=== PATIENT | female | born 1950 | race Caucasian/White ===

== ENCOUNTER 2020-05-15 09:42 | Inpatient (IN) | payer OTHER, MEDICARE, SELFPAY ==
[~2020-05-15] VITALS: Ht 170.2 cm; Wt 81.6 kg
[2020-05-15 09:42] VITALS: BP_SYST 122
[~2020-05-15 09:42] MED LIST: LIDOCAINE 1% 10 MG/ML, 20 ML MDV INJ ONE; NS 1000 ML IV.SOLN IV ONE; NS IRRIG SOLN 1000 ML IR ONE; PROPOFOL 200MG/ 20ML VIAL (DIPRIVAN) IV ONE
[2020-05-15] MEDS ORDERED: CELE200C PO (09:59)
[2020-05-15] MEDS ORDERED: PROP10TA10 PO (09:59)
[2020-05-15] MEDS ORDERED: SSNOVOLOG SUBCUT (09:59)
[2020-05-15] MEDS ORDERED: OXYIR5 PO (09:59)
[2020-05-15] MEDS ORDERED: POTA8TAB57 PO (09:59)
[2020-05-15] MEDS ORDERED: PRO40 PO (09:59)
[2020-05-15 10:22] LABS: EOSINOPHILS % (AUTO) 0.2 % (0.0-4.0); HEMATOCRIT 37.3 % (36-48); HEMOGLOBIN 12.4 g/dL (12.0-16.0); LYMPHOCYTES # (AUTO) 0.6 K/uL (1.0-5.5); LYMPHOCYTES % (AUTO) 3.1 % (20.5-51.5); MEAN CORPUSCULAR HEMOGLOBIN 28 pg (27-31); MEAN CORPUSCULAR HGB CONC 33 % (32-36); MEAN CORPUSCULAR VOLUME 83 fL (79.0-98.0); MONOCYTES % (AUTO) 5.6 % (1.7-9.3); NEUTROPHILS # (AUTO) 17.1 K/uL (1.8-7.7); NEUTROPHILS % (AUTO) 91.1 % (40.0-70.0); PLATELET COUNT (AUTO) 146 K/uL (130-430); RED BLOOD CELL COUNT(AUTO) 4.51 MIL/uL (4.2-6.2); RED CELL DISTRIBUTION WIDTH 18.2 % (9.0-15.0); WHITE BLOOD COUNT (AUTO) 18.7 K/uL (4.8-10.8)
[2020-05-15 10:42] LABS: CALCIUM 8.7 mg/dL (8.4-11.0); CREATININE 1.42 mg/dL (0.55-1.30); POTASSIUM 5.4 mmol/L (3.5-5.1)
[2020-05-15 10:45] LABS: BILIRUBIN,URINE 2+ (NEGATIVE); BLOOD, URINE 2+ (NEGATIVE); CLARITY/URINE SL CLOUDY (CLEAR); GLUCOSE,URINE NEGATIVE (NEGATIVE); KETONES,URINE NEGATIVE (NEGATIVE); LEUKOCYTE ESTERASE ,URINE NEGATIVE (NEGATIVE); NITRITE, URINE POSITIVE (NEGATIVE); PROTEIN URINE TRACE (NEGATIVE)
[2020-05-15 10:48] LABS: ALBUMIN 2.2 g/dL (3.4-4.8); TOTAL BILIRUBIN 4.3 mg/dL (0.0-1.0)
[2020-05-15 10:54] LABS: COLOR,URINE AMBER (YELLOW)
[2020-05-15] MEDS ORDERED: NACL 0.9% 2,000 ML IV ONE (11:00)
[2020-05-15] MEDS ORDERED: LEVOFLOXACIN 500 MG/D5W 100 ML IV ONE ×2 (11:45→13:45)
[2020-05-15 11:53] LABS: BACTERIA,URINE FEW /HPF (None Seen)
[2020-05-15] MEDS ORDERED: fentaNYL CITRATE 250 MCG/5 ML AMP IV ONE (12:35)
[2020-05-15] MEDS ORDERED: MIDAZOLAM HCL 5 MG/5 ML VIAL IVP ONE (12:35)
[2020-05-15] MEDS ORDERED: LEVOFLOXACIN 500 MG/D5W 100 ML PIGGYBACK IV ONE (12:35)
[2020-05-15] MEDS ORDERED: DESFLURANE 15 MIN GAS INH ONE (12:35)
[2020-05-15] MEDS ORDERED: ROCURONIUM BROMIDE 10 MG/ML (ZEMURON) IV ONE (12:35)
[2020-05-15] MEDS ORDERED: LR 1,000 ML IV.SOLN IV ONE (12:35)
[2020-05-15] MEDS ORDERED: NS IRRIG SOLN 1000 ML IR ONE (12:35)
[2020-05-15] MEDS ORDERED: DEXAMETHASONE SOD PHOSPHATE 4 MG/ML VIAL IVP ONE (12:35)
[2020-05-15] MEDS ORDERED: CLINDAMYCIN PHOSPHATE 600 mg/50mL D5W IV ONE (12:35)
[2020-05-15] MEDS ORDERED: SUGAMMADEX SODIUM 200 MG/2 ML VIAL IV ONE (12:35)
[2020-05-15] MEDS ORDERED: ONDANSETRON HCL 4 MG/2 ML VIAL IVP ONE (12:35)
[2020-05-15] MEDS ORDERED: LIDOCAINE 1% 10 MG/ML, 20 ML MDV IM ONE (12:35)
[2020-05-15] MEDS ORDERED: BUPIVACAINE /PF 0.25% 30 ML VIAL INJ ONE (12:35)
[2020-05-15] MEDS ORDERED: AZITHROMYCIN 500 MG/VIAL (ZITHROMAX) IV ONE (13:40)
[2020-05-15] MEDS ORDERED: AZITHROMYCIN 500 MG in NS 250 ML IV ONE (13:45)
[2020-05-15] MEDS ORDERED: GLUCOSE (DEXTROSE) ORAL GEL -Adults PO PRN (16:00)
[2020-05-15] MEDS ORDERED: D5W 1,000 ML IV PRN (16:00)
[2020-05-15] MEDS ORDERED: IPRATROPIUM/ALBUTEROL SULFATE 3 ML AMPUL.NEB (DUONEB) INH PRN (16:00)
[2020-05-15] MEDS ORDERED: DEXTROSE 50% JECT 50 ML DISP.SYRIN IVP PRN (16:00)
[2020-05-15 16:28] VITALS: BP_SYST 134
[2020-05-15 16:36] VITALS: BP_SYST 137
[2020-05-15 16:42] VITALS: BP_SYST 134
[2020-05-15] MEDS: INSULIN LISPRO SLIDING SCALE 100 UNITS/ML VIAL (humaLOG) SUBCUT PRN (18:05)
[2020-05-15] MEDS: NACL 0.9% 1,000 ML IV SCH (19:10)
[2020-05-15 19:52] VITALS: BP_SYST 130
[2020-05-15 20:00] VITALS: BP_SYST 143
[2020-05-15] MEDS ORDERED: SODIUM POLYSTYRENE SULFONATE 15 GM/60 ML UDBTL PO ONE (20:00)
[2020-05-15] MEDS: SENNOSIDES 8.6 MG TABLET PO SCH (21:00)
[2020-05-15] MEDS ORDERED: SODIUM POLYSTYRENE SULFONATE 15 GM/60 ML UDBTL ONE (21:25)
[2020-05-16 00:12] VITALS: BP_SYST 136
[2020-05-16] MEDS: NACL 0.9% 1,000 ML IV SCH ×3 (03:24→22:00)
[2020-05-16] MEDS ORDERED: VANCOMYCIN HCL 1 GM/NS PREMIX 250 ML IV ONE (05:00)
[2020-05-16 06:44] LABS: BASOPHILS # (AUTO) 0.1 K/uL (0.0-0.2); BASOPHILS % (AUTO) 0.6 % (0.0-2.0); EOSINOPHILS # (AUTO) 0.1 K/uL (0.0-0.4); EOSINOPHILS % (AUTO) 0.6 % (0.0-4.0); HEMATOCRIT 35.1 % (36-48); HEMOGLOBIN 11.6 g/dL (12.0-16.0); LYMPHOCYTES # (AUTO) 0.5 K/uL (1.0-5.5); LYMPHOCYTES % (AUTO) 4.6 % (20.5-51.5); MEAN CORPUSCULAR HEMOGLOBIN 28 pg (27-31); MEAN CORPUSCULAR HGB CONC 33 % (32-36); MEAN CORPUSCULAR VOLUME 83 fL (79.0-98.0); MONOCYTES # (AUTO) 0.6 K/uL (0.0-1.0); MONOCYTES % (AUTO) 5.6 % (1.7-9.3); NEUTROPHILS # (AUTO) 9.7 K/uL (1.8-7.7); NEUTROPHILS % (AUTO) 88.6 % (40.0-70.0); PLATELET COUNT (AUTO) 66 K/uL (130-430); RED BLOOD CELL COUNT(AUTO) 4.22 MIL/uL (4.2-6.2); RED CELL DISTRIBUTION WIDTH 18.8 % (9.0-15.0)
[2020-05-16 07:46] LABS: ALBUMIN 1.6 g/dL (3.4-4.8); BILIRUBIN,DIRECT 2.6 mg/dL (0.0-0.3); CREATININE 0.99 mg/dL (0.55-1.30); POTASSIUM 4.4 mmol/L (3.5-5.1); THYROID STIMULATING HORMONE 2.11 uIu/mL (0.36-3.74)
[2020-05-16 08:00] VITALS: BP_SYST 132
[2020-05-16 08:33] LABS: TOTAL BILIRUBIN 3.3 mg/dL (0.0-1.0)
[2020-05-16] MEDS: FAMOTIDINE 20 MG TABLET PO SCH (08:36)
[2020-05-16] MEDS: LEVOFLOXACIN 250 MG/D5W 50 ML IV SCH (11:00)
[2020-05-16] MEDS: oxyCODONE HCL 5 MG TABLET PO PRN ×2 (11:24→20:30)
[2020-05-16] MEDS: INSULIN LISPRO SLIDING SCALE 100 UNITS/ML VIAL (humaLOG) SUBCUT PRN ×3 (11:30→20:35)
[2020-05-16 12:00] VITALS: BP_SYST 141
[2020-05-16] MEDS: VANCOMYCIN HCL 1 GM/NS PREMIX 250 ML IV SCH (12:00)
[2020-05-16] MEDS ORDERED: DECADRON 4 MG TABLET ONE (12:49)
[2020-05-16] MEDS: DECADRON 4 MG TABLET PO SCH (12:57)
[2020-05-16 16:00] VITALS: BP_SYST 135
[2020-05-16] MEDS: BALSAM PERU/CASTOR OIL 60 GM OINT...G. TP SCH (17:00)
[2020-05-16] MEDS: FUROSEMIDE 20 MG/2 ML VIAL IVP SCH (18:00)
[2020-05-16 20:20] VITALS: BP_SYST 147
[2020-05-16] MEDS: SENNOSIDES 8.6 MG TABLET PO SCH (21:00)
[2020-05-17] VITALS: BP_SYST 139
[2020-05-17] MEDS: VANCOMYCIN HCL 1 GM/NS PREMIX 250 ML IV SCH ×2 (00:40→12:31)
[2020-05-17] MEDS: oxyCODONE HCL 5 MG TABLET PO PRN ×3 (06:19→21:39)
[2020-05-17] MEDS: INSULIN LISPRO SLIDING SCALE 100 UNITS/ML VIAL (humaLOG) SUBCUT PRN ×4 (06:24→21:43)
[2020-05-17 07:15] LABS: BASOPHILS % (AUTO) 0.3 % (0.0-2.0); HEMATOCRIT 37.1 % (36-48); HEMOGLOBIN 12.2 g/dL (12.0-16.0); LYMPHOCYTES # (AUTO) 0.4 K/uL (1.0-5.5); LYMPHOCYTES % (AUTO) 4.2 % (20.5-51.5); MEAN CORPUSCULAR HEMOGLOBIN 28 pg (27-31); MEAN CORPUSCULAR HGB CONC 33 % (32-36); MEAN CORPUSCULAR VOLUME 84 fL (79.0-98.0); MONOCYTES # (AUTO) 0.3 K/uL (0.0-1.0); MONOCYTES % (AUTO) 3.9 % (1.7-9.3); NEUTROPHILS # (AUTO) 7.8 K/uL (1.8-7.7); NEUTROPHILS % (AUTO) 91.6 % (40.0-70.0); RED BLOOD CELL COUNT(AUTO) 4.44 MIL/uL (4.2-6.2); RED CELL DISTRIBUTION WIDTH 19.2 % (9.0-15.0); WHITE BLOOD COUNT (AUTO) 8.5 K/uL (4.8-10.8)
[2020-05-17 07:44] LABS: ALBUMIN 1.5 g/dL (3.4-4.8); CALCIUM 7.8 mg/dL (8.4-11.0); CREATININE 0.86 mg/dL (0.55-1.30); POTASSIUM 4.4 mmol/L (3.5-5.1); TOTAL BILIRUBIN 2.7 mg/dL (0.0-1.0)
[2020-05-17 08:00] VITALS: BP_SYST 156
[2020-05-17 08:07] LABS: HEPATITIS A AB, IgM Negative (Negative); HEPATITIS B CORE AB, IgM Negative (Negative); HEPATITIS B SURFACE AG Negative (Negative)
[2020-05-17] MEDS: NACL 0.9% 1,000 ML IV SCH (08:25)
[2020-05-17 09:00] LABS: C-REACTIVE PROTEIN QUANT 13.6 mg/dL (0-0.5)
[2020-05-17] MEDS ORDERED: ENOXAPARIN SODIUM 30 MG/0.3 ML SYRINGE SUBCUT SCH (09:00)
[2020-05-17] MEDS: FAMOTIDINE 20 MG TABLET PO SCH (10:21)
[2020-05-17] MEDS: FUROSEMIDE 20 MG/2 ML VIAL IVP SCH (10:21)
[2020-05-17] MEDS: DECADRON 4 MG TABLET PO SCH (10:21)
[2020-05-17] MEDS: BALSAM PERU/CASTOR OIL 60 GM OINT...G. TP SCH ×2 (10:22→13:40)
[2020-05-17] MEDS: ACETAMINOPHEN 325 MG TABLET PO PRN (10:22)
[2020-05-17] MEDS ORDERED: oxyCODONE HCL 5 MG TABLET PO ONE (10:45)
[2020-05-17] MEDS: LEVOFLOXACIN 250 MG/D5W 50 ML IV SCH (11:00)
[2020-05-17 11:20] VITALS: BP_SYST 142
[2020-05-17] MEDS ORDERED: methylPREDNISolone ACETATE 40 MG/ML IM ONE (11:45)
[2020-05-17] MEDS ORDERED: LIDOCAINE PF 1%, 20 MG/2 ML AMP INJ ONE (11:45)
[2020-05-17] MEDS ORDERED: COMMUNICATION ORDER XX ONE (12:00)
[2020-05-17] MEDS ORDERED: BUPIVACAINE /PF 0.75% 10 ML VIAL INJ ONE (12:15)
[2020-05-17] MEDS ORDERED: MENTHOL/ZINC OXIDE 113 GM OINT. TP PRN (12:30)
[2020-05-17 14:02] LABS: PLATELET COUNT (AUTO) 54 K/uL (130-430)
[2020-05-17 15:26] VITALS: BP_SYST 156
[2020-05-17 15:38] LABS: APPEARANCE,SPUN,BODY FLUID HAZY (CLEAR); BF APPEARANCE UNSPUN CLOUDY (CLEAR); BODY FLUID COLOR RED (LT YELLOW); BODY FLUID SOURCE/ TYPE PLEURAL; BODY FLUID TOTAL VOLUME 700 mL; NEUTROPHIL, BODY FLUID 90 %; RBC, BODY FLUID 54567 /uL; SOURCE/TYPE ,BODY FLUID THORACENTESIS; WBC, BODY FLUID 53433 /uL
[2020-05-17 15:39] LABS: MONOCYTES,BODY FLUID 10 %
[2020-05-17 18:51] LABS: BODY FLUID GLUCOSE 73 mg/dL; BODY FLUID TOTAL PROTEIN 4.2 g/dL
[2020-05-17 20:50] VITALS: BP_SYST 145
[2020-05-17] MEDS: SENNOSIDES 8.6 MG TABLET PO SCH ×2 (21:30→21:31)
[2020-05-17] MEDS: IBUPROFEN 400 MG TABLET PO PRN (21:40)
[2020-05-18] VITALS (7 sets, daily range): BP systolic 140–146
[2020-05-18] MEDS: VANCOMYCIN HCL 1 GM/NS PREMIX 250 ML IV SCH (00:20)
[2020-05-18] MEDS: IBUPROFEN 400 MG TABLET PO PRN ×2 (02:58→06:44)
[2020-05-18] MEDS: oxyCODONE HCL 5 MG TABLET PO PRN ×3 (02:59→19:50)
[2020-05-18] MEDS: NACL 0.9% 1,000 ML IV SCH ×2 (06:21→15:49)
[2020-05-18] MEDS: INSULIN LISPRO SLIDING SCALE 100 UNITS/ML VIAL (humaLOG) SUBCUT PRN ×4 (06:44→20:18)
[2020-05-18 07:51] LABS: ALBUMIN 1.5 g/dL (3.4-4.8); CALCIUM 7.6 mg/dL (8.4-11.0); CREATININE 1.03 mg/dL (0.55-1.30); TOTAL BILIRUBIN 2.1 mg/dL (0.0-1.0)
[2020-05-18] MEDS: DECADRON 4 MG TABLET PO SCH (08:24)
[2020-05-18] MEDS: FAMOTIDINE 20 MG TABLET PO SCH (08:24)
[2020-05-18] MEDS: FUROSEMIDE 20 MG/2 ML VIAL IVP SCH (08:25)
[2020-05-18] MEDS: BALSAM PERU/CASTOR OIL 60 GM OINT...G. TP SCH ×3 (08:30→15:57)
[2020-05-18] MEDS: LEVOFLOXACIN 250 MG/D5W 50 ML IV SCH (11:01)
[2020-05-18] MEDS: VANCOMYCIN HCL 750 MG/NS 250 ML IV SCH (19:53)
[2020-05-18] MEDS ORDERED: INSULIN GLARGINE 100 UNITS/ML 10 ML VIAL SUBCUT SCH (21:00)
[2020-05-19 00:06] VITALS: BP_SYST 145
[2020-05-19] MEDS: oxyCODONE HCL 5 MG TABLET PO PRN ×4 (01:02→20:15)
[2020-05-19] MEDS: INSULIN LISPRO SLIDING SCALE 100 UNITS/ML VIAL (humaLOG) SUBCUT PRN ×4 (06:32→20:17)
[2020-05-19 06:51] LABS: BASOPHILS % (AUTO) 0.2 % (0.0-2.0); HEMATOCRIT 36.7 % (36-48); HEMOGLOBIN 12.2 g/dL (12.0-16.0); LYMPHOCYTES # (AUTO) 0.5 K/uL (1.0-5.5); LYMPHOCYTES % (AUTO) 8.8 % (20.5-51.5); MEAN CORPUSCULAR HEMOGLOBIN 28 pg (27-31); MEAN CORPUSCULAR HGB CONC 33 % (32-36); MEAN CORPUSCULAR VOLUME 83 fL (79.0-98.0); MONOCYTES # (AUTO) 0.5 K/uL (0.0-1.0); MONOCYTES % (AUTO) 8.2 % (1.7-9.3); NEUTROPHILS # (AUTO) 5.1 K/uL (1.8-7.7); NEUTROPHILS % (AUTO) 82.8 % (40.0-70.0); PLATELET COUNT (AUTO) 54 K/uL (130-430); RED BLOOD CELL COUNT(AUTO) 4.41 MIL/uL (4.2-6.2); RED CELL DISTRIBUTION WIDTH 19.4 % (9.0-15.0); WHITE BLOOD COUNT (AUTO) 6.2 K/uL (4.8-10.8)
[2020-05-19 07:43] LABS: ALBUMIN 1.6 g/dL (3.4-4.8); CALCIUM 7.6 mg/dL (8.4-11.0); CREATININE 0.93 mg/dL (0.55-1.30); POTASSIUM 4.8 mmol/L (3.5-5.1)
[2020-05-19 07:58] VITALS: BP_SYST 154
[2020-05-19] MEDS: DECADRON 4 MG TABLET PO SCH (08:21)
[2020-05-19] MEDS: FAMOTIDINE 20 MG TABLET PO SCH (08:21)
[2020-05-19] MEDS: VANCOMYCIN HCL 750 MG/NS 250 ML IV SCH ×2 (08:21→20:13)
[2020-05-19] MEDS: FUROSEMIDE 20 MG/2 ML VIAL IVP SCH (08:21)
[2020-05-19] MEDS: LEVOFLOXACIN 250 MG/D5W 50 ML IV SCH (11:20)
[2020-05-19 11:52] VITALS: BP_SYST 152
[2020-05-19 16:56] VITALS: BP_SYST 158
[2020-05-19 20:00] VITALS: BP_SYST 148
[2020-05-19] MEDS: INSULIN GLARGINE 100 UNITS/ML 10 ML VIAL SUBCUT SCH (20:18)
[2020-05-19] MEDS: SENNOSIDES 8.6 MG TABLET PO SCH (20:20)
[2020-05-20 00:30] VITALS: BP_SYST 148
[2020-05-20] MEDS: oxyCODONE HCL 5 MG TABLET PO PRN ×3 (04:25→20:42)
[2020-05-20] MEDS: NACL 0.9% 1,000 ML IV SCH (05:37)
[2020-05-20] MEDS: INSULIN LISPRO SLIDING SCALE 100 UNITS/ML VIAL (humaLOG) SUBCUT PRN ×4 (06:33→20:33)
[2020-05-20 08:00] VITALS: BP_SYST 144
[2020-05-20 08:44] LABS: BASOPHILS % (AUTO) 0.2 % (0.0-2.0); EOSINOPHILS % (AUTO) 0.4 % (0.0-4.0); HEMATOCRIT 35.8 % (36-48); HEMOGLOBIN 11.8 g/dL (12.0-16.0); LYMPHOCYTES # (AUTO) 0.6 K/uL (1.0-5.5); LYMPHOCYTES % (AUTO) 10.7 % (20.5-51.5); MEAN CORPUSCULAR HEMOGLOBIN 27 pg (27-31); MEAN CORPUSCULAR HGB CONC 33 % (32-36); MEAN CORPUSCULAR VOLUME 83 fL (79.0-98.0); MONOCYTES # (AUTO) 0.6 K/uL (0.0-1.0); MONOCYTES % (AUTO) 9.5 % (1.7-9.3); NEUTROPHILS # (AUTO) 4.6 K/uL (1.8-7.7); NEUTROPHILS % (AUTO) 79.2 % (40.0-70.0); PLATELET COUNT (AUTO) 45 K/uL (130-430); RED BLOOD CELL COUNT(AUTO) 4.32 MIL/uL (4.2-6.2); RED CELL DISTRIBUTION WIDTH 18.6 % (9.0-15.0); WHITE BLOOD COUNT (AUTO) 5.8 K/uL (4.8-10.8)
[2020-05-20] MEDS: VANCOMYCIN HCL 750 MG/NS 250 ML IV SCH ×2 (09:03→20:20)
[2020-05-20] MEDS: FUROSEMIDE 20 MG/2 ML VIAL IVP SCH (09:04)
[2020-05-20] MEDS: BALSAM PERU/CASTOR OIL 60 GM OINT...G. TP SCH (09:04)
[2020-05-20] MEDS: FAMOTIDINE 20 MG TABLET PO SCH (09:04)
[2020-05-20] MEDS: DECADRON 4 MG TABLET PO SCH (09:04)
[2020-05-20] MEDS: LEVOFLOXACIN 250 MG/D5W 50 ML IV SCH (09:05)
[2020-05-20 09:08] LABS: ALBUMIN 1.5 g/dL (3.4-4.8); CALCIUM 7.6 mg/dL (8.4-11.0); CREATININE 0.72 mg/dL (0.55-1.30); POTASSIUM 4.5 mmol/L (3.5-5.1); TOTAL BILIRUBIN 1.8 mg/dL (0.0-1.0)
[2020-05-20] MEDS ORDERED: OXYCODONE/ACETAMINOPHEN *10*mg/325 mg TABLET ONE (10:09)
[2020-05-20] MEDS: OXYCODONE/ACETAMINOPHEN *10*mg/325 mg TABLET PO PRN (10:12)
[2020-05-20 12:40] VITALS: BP_SYST 133
[2020-05-20 16:28] LABS: RETICULOCYTE COUNT 0.7 % (0.5-1.5)
[2020-05-20 16:40] LABS: INR 1.6 (0.8-1.2); PROTHROMBIN TIME 16.1 SECS (9.5-12.5)
[2020-05-20 16:46] VITALS: BP_SYST 142
[2020-05-20 16:51] LABS: THYROID STIMULATING HORMONE 4.47 uIu/mL (0.36-3.74)
[2020-05-20 20:00] VITALS: BP_SYST 146
[2020-05-20] MEDS: SENNOSIDES 8.6 MG TABLET PO SCH (20:21)
[2020-05-20] MEDS: INSULIN GLARGINE 100 UNITS/ML 10 ML VIAL SUBCUT SCH (20:34)
[2020-05-21 00:29] VITALS: BP_SYST 147
[2020-05-21] MEDS: oxyCODONE HCL 5 MG TABLET PO PRN ×5 (03:00→21:29)
[2020-05-21] MEDS: NACL 0.9% 1,000 ML IV SCH (06:02)
[2020-05-21] MEDS: INSULIN LISPRO SLIDING SCALE 100 UNITS/ML VIAL (humaLOG) SUBCUT PRN ×4 (06:06→21:38)
[2020-05-21 07:21] LABS: BASOPHILS % (AUTO) 0.3 % (0.0-2.0); EOSINOPHILS # (AUTO) 0.1 K/uL (0.0-0.4); HEMATOCRIT 36.2 % (36-48); LYMPHOCYTES # (AUTO) 0.6 K/uL (1.0-5.5); LYMPHOCYTES % (AUTO) 9.7 % (20.5-51.5); MEAN CORPUSCULAR HEMOGLOBIN 27 pg (27-31); MEAN CORPUSCULAR HGB CONC 33 % (32-36); MEAN CORPUSCULAR VOLUME 83 fL (79.0-98.0); MONOCYTES # (AUTO) 0.5 K/uL (0.0-1.0); MONOCYTES % (AUTO) 8.3 % (1.7-9.3); NEUTROPHILS # (AUTO) 4.6 K/uL (1.8-7.7); NEUTROPHILS % (AUTO) 80.7 % (40.0-70.0); RED BLOOD CELL COUNT(AUTO) 4.39 MIL/uL (4.2-6.2); RED CELL DISTRIBUTION WIDTH 18.8 % (9.0-15.0); WHITE BLOOD COUNT (AUTO) 5.7 K/uL (4.8-10.8)
[2020-05-21 07:52] LABS: ALBUMIN 1.5 g/dL (3.4-4.8); CALCIUM 7.6 mg/dL (8.4-11.0); CREATININE 0.71 mg/dL (0.55-1.30); POTASSIUM 4.6 mmol/L (3.5-5.1); TOTAL BILIRUBIN 1.8 mg/dL (0.0-1.0)
[2020-05-21] MEDS: VANCOMYCIN HCL 750 MG/NS 250 ML IV SCH ×2 (08:28→21:30)
[2020-05-21] MEDS: DECADRON 4 MG TABLET PO SCH (08:29)
[2020-05-21] MEDS: FUROSEMIDE 20 MG/2 ML VIAL IVP SCH (08:29)
[2020-05-21] MEDS: FAMOTIDINE 20 MG TABLET PO SCH (08:29)
[2020-05-21] MEDS: BALSAM PERU/CASTOR OIL 60 GM OINT...G. TP SCH (08:29)
[2020-05-21 08:48] VITALS: BP_SYST 148
[2020-05-21] MEDS: LEVOFLOXACIN 250 MG/D5W 50 ML IV SCH (11:17)
[2020-05-21 11:23] LABS: PLATELET COUNT (AUTO) 41 K/uL (130-430)
[2020-05-21 12:26] VITALS: BP_SYST 126
[2020-05-21 13:32] VITALS: BP_SYST 126
[2020-05-21 16:41] VITALS: BP_SYST 138
[2020-05-21 20:30] VITALS: BP_SYST 138
[2020-05-21] MEDS: SENNOSIDES 8.6 MG TABLET PO SCH (21:00)
[2020-05-21] MEDS: INSULIN GLARGINE 100 UNITS/ML 10 ML VIAL SUBCUT SCH (21:37)
[2020-05-22 00:32] VITALS: BP_SYST 143
[2020-05-22] MEDS ORDERED: OXYCODONE/ACETAMINOPHEN *10*mg/325 mg TABLET ONE ×2 (01:52→21:10)
[2020-05-22] MEDS: OXYCODONE/ACETAMINOPHEN *10*mg/325 mg TABLET PO PRN ×2 (01:56→21:25)
[2020-05-22] MEDS: NACL 0.9% 1,000 ML IV SCH (06:13)
[2020-05-22] MEDS: oxyCODONE HCL 5 MG TABLET PO PRN ×3 (06:16→16:31)
[2020-05-22] MEDS: INSULIN LISPRO SLIDING SCALE 100 UNITS/ML VIAL (humaLOG) SUBCUT PRN ×4 (06:18→21:30)
[2020-05-22 07:27] LABS: BASOPHILS % (AUTO) 0.3 % (0.0-2.0); EOSINOPHILS % (AUTO) 0.5 % (0.0-4.0); HEMATOCRIT 36.5 % (36-48); HEMOGLOBIN 11.8 g/dL (12.0-16.0); LYMPHOCYTES # (AUTO) 0.5 K/uL (1.0-5.5); LYMPHOCYTES % (AUTO) 7.7 % (20.5-51.5); MEAN CORPUSCULAR HEMOGLOBIN 27 pg (27-31); MEAN CORPUSCULAR HGB CONC 32 % (32-36); MEAN CORPUSCULAR VOLUME 83 fL (79.0-98.0); MONOCYTES # (AUTO) 0.5 K/uL (0.0-1.0); MONOCYTES % (AUTO) 7.6 % (1.7-9.3); NEUTROPHILS # (AUTO) 5.4 K/uL (1.8-7.7); NEUTROPHILS % (AUTO) 83.9 % (40.0-70.0); PLATELET COUNT (AUTO) 52 K/uL (130-430); RED BLOOD CELL COUNT(AUTO) 4.39 MIL/uL (4.2-6.2); RED CELL DISTRIBUTION WIDTH 18.5 % (9.0-15.0); WHITE BLOOD COUNT (AUTO) 6.4 K/uL (4.8-10.8)
[2020-05-22 08:00] VITALS: BP_SYST 139
[2020-05-22 08:21] LABS: INR 1.5 (0.8-1.2); PROTHROMBIN TIME 15.1 SECS (9.5-12.5)
[2020-05-22] MEDS: DECADRON 4 MG TABLET PO SCH (08:52)
[2020-05-22] MEDS: FAMOTIDINE 20 MG TABLET PO SCH (08:53)
[2020-05-22] MEDS: FUROSEMIDE 20 MG/2 ML VIAL IVP SCH (08:53)
[2020-05-22 08:54] LABS: ALBUMIN 1.5 g/dL (3.4-4.8); CALCIUM 7.8 mg/dL (8.4-11.0); CREATININE 0.7 mg/dL (0.55-1.30); POTASSIUM 4.4 mmol/L (3.5-5.1); TOTAL BILIRUBIN 1.7 mg/dL (0.0-1.0)
[2020-05-22] MEDS: BALSAM PERU/CASTOR OIL 60 GM OINT...G. TP SCH (08:54)
[2020-05-22] MEDS: VANCOMYCIN HCL 750 MG/NS 250 ML IV SCH ×2 (08:54→21:34)
[2020-05-22] MEDS: LEVOFLOXACIN 250 MG/D5W 50 ML IV SCH (10:25)
[2020-05-22 12:42] VITALS: BP_SYST 151
[2020-05-22 16:16] VITALS: BP_SYST 133
[2020-05-22 20:55] VITALS: BP_SYST 138
[2020-05-22] MEDS: SENNOSIDES 8.6 MG TABLET PO SCH (21:00)
[2020-05-22] MEDS: INSULIN GLARGINE 100 UNITS/ML 10 ML VIAL SUBCUT SCH (21:31)
[2020-05-23 00:09] VITALS: BP_SYST 135
[2020-05-23] MEDS ORDERED: MORPHINE 2 MG/ML INJ. SYRINGE ONE (03:21)
[2020-05-23] MEDS: MORPHINE 2 MG/ML INJ. SYRINGE IVP PRN (03:23)
[2020-05-23] MEDS: INSULIN LISPRO SLIDING SCALE 100 UNITS/ML VIAL (humaLOG) SUBCUT PRN ×3 (06:42→22:21)
[2020-05-23 06:55] LABS: BASOPHILS % (AUTO) 0.2 % (0.0-2.0); EOSINOPHILS # (AUTO) 0.1 K/uL (0.0-0.4); EOSINOPHILS % (AUTO) 0.8 % (0.0-4.0); HEMATOCRIT 37.6 % (36-48); HEMOGLOBIN 12.3 g/dL (12.0-16.0); LYMPHOCYTES # (AUTO) 0.6 K/uL (1.0-5.5); LYMPHOCYTES % (AUTO) 10.6 % (20.5-51.5); MEAN CORPUSCULAR HEMOGLOBIN 27 pg (27-31); MEAN CORPUSCULAR HGB CONC 33 % (32-36); MEAN CORPUSCULAR VOLUME 83 fL (79.0-98.0); MONOCYTES # (AUTO) 0.4 K/uL (0.0-1.0); MONOCYTES % (AUTO) 6.4 % (1.7-9.3); NEUTROPHILS # (AUTO) 4.9 K/uL (1.8-7.7); PLATELET COUNT (AUTO) 60 K/uL (130-430); RED BLOOD CELL COUNT(AUTO) 4.52 MIL/uL (4.2-6.2); RED CELL DISTRIBUTION WIDTH 18.5 % (9.0-15.0)
[2020-05-23 07:44] LABS: CALCIUM 7.8 mg/dL (8.4-11.0); CREATININE 0.73 mg/dL (0.55-1.30)
[2020-05-23 09:00] VITALS: BP_SYST 143
[2020-05-23] MEDS: VANCOMYCIN HCL 750 MG/NS 250 ML IV SCH (09:23)
[2020-05-23] MEDS: NACL 0.9% 1,000 ML IV SCH (09:29)
[2020-05-23] MEDS: BALSAM PERU/CASTOR OIL 60 GM OINT...G. TP SCH (09:31)
[2020-05-23] MEDS: FAMOTIDINE 20 MG TABLET PO SCH (09:31)
[2020-05-23] MEDS: DECADRON 4 MG TABLET PO SCH (09:31)
[2020-05-23] MEDS: oxyCODONE HCL 5 MG TABLET PO PRN ×3 (09:31→22:02)
[2020-05-23] MEDS: FUROSEMIDE 20 MG/2 ML VIAL IVP SCH (09:33)
[2020-05-23] MEDS: LEVOFLOXACIN 250 MG/D5W 50 ML IV SCH (11:22)
[2020-05-23 12:00] VITALS: BP_SYST 132
[2020-05-23 14:06] LABS: HEPARIN INDUCED PLT AB 0.102 OD (0.000-0.400)
[2020-05-23 16:43] VITALS: BP_SYST 129
[2020-05-23] MEDS: SENNOSIDES 8.6 MG TABLET PO SCH (22:01)
[2020-05-23] MEDS: INSULIN GLARGINE 100 UNITS/ML 10 ML VIAL SUBCUT SCH (22:20)
[2020-05-24] VITALS (7 sets, daily range): BP systolic 122–141
[2020-05-24] MEDS: NACL 0.9% 1,000 ML IV SCH (05:48)
[2020-05-24] MEDS: oxyCODONE HCL 5 MG TABLET PO PRN ×2 (06:36→11:09)
[2020-05-24 07:14] LABS: BASOPHILS % (AUTO) 0.3 % (0.0-2.0); EOSINOPHILS # (AUTO) 0.1 K/uL (0.0-0.4); EOSINOPHILS % (AUTO) 0.6 % (0.0-4.0); HEMATOCRIT 37.5 % (36-48); HEMOGLOBIN 12.4 g/dL (12.0-16.0); LYMPHOCYTES # (AUTO) 0.8 K/uL (1.0-5.5); LYMPHOCYTES % (AUTO) 8.7 % (20.5-51.5); MEAN CORPUSCULAR HEMOGLOBIN 27 pg (27-31); MEAN CORPUSCULAR HGB CONC 33 % (32-36); MEAN CORPUSCULAR VOLUME 83 fL (79.0-98.0); MONOCYTES # (AUTO) 0.7 K/uL (0.0-1.0); MONOCYTES % (AUTO) 7.1 % (1.7-9.3); NEUTROPHILS # (AUTO) 7.8 K/uL (1.8-7.7); NEUTROPHILS % (AUTO) 83.3 % (40.0-70.0); PLATELET COUNT (AUTO) 79 K/uL (130-430); RED BLOOD CELL COUNT(AUTO) 4.52 MIL/uL (4.2-6.2); RED CELL DISTRIBUTION WIDTH 18.6 % (9.0-15.0); WHITE BLOOD COUNT (AUTO) 9.4 K/uL (4.8-10.8)
[2020-05-24] MEDS: BALSAM PERU/CASTOR OIL 60 GM OINT...G. TP SCH (08:54)
[2020-05-24] MEDS: DECADRON 4 MG TABLET PO SCH (08:54)
[2020-05-24] MEDS: FAMOTIDINE 20 MG TABLET PO SCH (08:54)
[2020-05-24] MEDS: FUROSEMIDE 20 MG/2 ML VIAL IVP SCH (08:54)
[2020-05-24] MEDS: LEVOFLOXACIN 250 MG/D5W 50 ML IV SCH (10:30)
[2020-05-24] MEDS ORDERED: PHYTONADIONE 10 MG/ML AMP SUBCUT ONE (12:00)
[2020-05-24] MEDS: INSULIN LISPRO SLIDING SCALE 100 UNITS/ML VIAL (humaLOG) SUBCUT PRN (12:30)
[2020-05-24] MEDS: SENNOSIDES 8.6 MG TABLET PO SCH (23:29)
[2020-05-25] VITALS: BP_SYST 138
[2020-05-25] MEDS: INSULIN LISPRO SLIDING SCALE 100 UNITS/ML VIAL (humaLOG) SUBCUT PRN ×3 (00:58→17:40)
[2020-05-25] MEDS: INSULIN GLARGINE 100 UNITS/ML 10 ML VIAL SUBCUT SCH ×2 (01:01→22:50)
[2020-05-25] MEDS: oxyCODONE HCL 5 MG TABLET PO PRN ×2 (01:12→12:16)
[2020-05-25] MEDS ORDERED: MORPHINE 2 MG/ML INJ. SYRINGE ONE ×2 (06:19→23:05)
[2020-05-25] MEDS: MORPHINE 2 MG/ML INJ. SYRINGE IVP PRN ×2 (06:31→23:09)
[2020-05-25 07:57] LABS: BASOPHILS % (AUTO) 0.1 % (0.0-2.0); EOSINOPHILS % (AUTO) 0.2 % (0.0-4.0); HEMOGLOBIN 11.9 g/dL (12.0-16.0); LYMPHOCYTES # (AUTO) 0.9 K/uL (1.0-5.5); MEAN CORPUSCULAR HEMOGLOBIN 27 pg (27-31); MEAN CORPUSCULAR HGB CONC 33 % (32-36); MEAN CORPUSCULAR VOLUME 82 fL (79.0-98.0); MONOCYTES # (AUTO) 0.7 K/uL (0.0-1.0); MONOCYTES % (AUTO) 7.4 % (1.7-9.3); NEUTROPHILS # (AUTO) 7.9 K/uL (1.8-7.7); NEUTROPHILS % (AUTO) 83.3 % (40.0-70.0); PLATELET COUNT (AUTO) 82 K/uL (130-430); RED BLOOD CELL COUNT(AUTO) 4.38 MIL/uL (4.2-6.2); RED CELL DISTRIBUTION WIDTH 18.7 % (9.0-15.0); WHITE BLOOD COUNT (AUTO) 9.5 K/uL (4.8-10.8)
[2020-05-25 08:00] VITALS: BP_SYST 128
[2020-05-25] MEDS: NACL 0.9% 1,000 ML IV SCH (08:06)
[2020-05-25 08:09] LABS: INR 1.5 (0.8-1.2); PROTHROMBIN TIME 15.5 SECS (9.5-12.5)
[2020-05-25 08:14] LABS: CALCIUM 7.9 mg/dL (8.4-11.0); CREATININE 0.71 mg/dL (0.55-1.30); POTASSIUM 4.4 mmol/L (3.5-5.1)
[2020-05-25] MEDS ORDERED: PHYTONADIONE 10 MG/ML AMP ONE (09:04)
[2020-05-25] MEDS: DECADRON 4 MG TABLET PO SCH (09:25)
[2020-05-25] MEDS: FAMOTIDINE 20 MG TABLET PO SCH (09:25)
[2020-05-25] MEDS: BALSAM PERU/CASTOR OIL 60 GM OINT...G. TP SCH (09:26)
[2020-05-25] MEDS: PHYTONADIONE 10 MG/ML AMP SUBCUT SCH (09:26)
[2020-05-25] MEDS: FUROSEMIDE 20 MG/2 ML VIAL IVP SCH (09:26)
[2020-05-25 11:19] VITALS: BP_SYST 141
[2020-05-25 16:00] VITALS: BP_SYST 144
[2020-05-25 20:00] VITALS: BP_SYST 137
[2020-05-25] MEDS: SENNOSIDES 8.6 MG TABLET PO SCH (22:47)
[2020-05-26 00:41] VITALS: BP_SYST 128
[2020-05-26] MEDS: NACL 0.9% 1,000 ML IV SCH (05:21)
[2020-05-26] MEDS ORDERED: MORPHINE 2 MG/ML INJ. SYRINGE ONE ×3 (06:13→23:10)
[2020-05-26] MEDS: INSULIN LISPRO SLIDING SCALE 100 UNITS/ML VIAL (humaLOG) SUBCUT PRN ×3 (06:15→21:23)
[2020-05-26] MEDS: MORPHINE 2 MG/ML INJ. SYRINGE IVP PRN ×4 (06:17→23:13)
[2020-05-26 06:37] LABS: BASOPHILS # (AUTO) 0.1 K/uL (0.0-0.2); BASOPHILS % (AUTO) 0.5 % (0.0-2.0); EOSINOPHILS % (AUTO) 0.4 % (0.0-4.0); HEMATOCRIT 38.4 % (36-48); HEMOGLOBIN 12.6 g/dL (12.0-16.0); LYMPHOCYTES # (AUTO) 0.8 K/uL (1.0-5.5); LYMPHOCYTES % (AUTO) 6.8 % (20.5-51.5); MEAN CORPUSCULAR HEMOGLOBIN 27 pg (27-31); MEAN CORPUSCULAR HGB CONC 33 % (32-36); MEAN CORPUSCULAR VOLUME 83 fL (79.0-98.0); MONOCYTES # (AUTO) 0.7 K/uL (0.0-1.0); NEUTROPHILS # (AUTO) 9.9 K/uL (1.8-7.7); NEUTROPHILS % (AUTO) 86.3 % (40.0-70.0); PLATELET COUNT (AUTO) 94 K/uL (130-430); RED BLOOD CELL COUNT(AUTO) 4.63 MIL/uL (4.2-6.2); RED CELL DISTRIBUTION WIDTH 18.8 % (9.0-15.0); WHITE BLOOD COUNT (AUTO) 11.4 K/uL (4.8-10.8)
[2020-05-26 07:58] LABS: INR 1.6 (0.8-1.2); PROTHROMBIN TIME 16.2 SECS (9.5-12.5)
[2020-05-26 08:00] VITALS: BP_SYST 133
[2020-05-26 08:01] LABS: CALCIUM 7.8 mg/dL (8.4-11.0); CREATININE 0.74 mg/dL (0.55-1.30); POTASSIUM 4.5 mmol/L (3.5-5.1)
[2020-05-26] MEDS: BALSAM PERU/CASTOR OIL 60 GM OINT...G. TP SCH (08:15)
[2020-05-26] MEDS: FAMOTIDINE 20 MG TABLET PO SCH (08:18)
[2020-05-26] MEDS ORDERED: PHYTONADIONE 10 MG/ML AMP ONE (08:22)
[2020-05-26] MEDS: PHYTONADIONE 10 MG/ML AMP SUBCUT SCH (08:41)
[2020-05-26] MEDS: DECADRON 4 MG TABLET PO SCH (08:42)
[2020-05-26] MEDS: FUROSEMIDE 20 MG/2 ML VIAL IVP SCH (08:42)
[2020-05-26 12:00] VITALS: BP_SYST 141
[2020-05-26 16:00] VITALS: BP_SYST 135
[2020-05-26 20:00] VITALS: BP_SYST 141
[2020-05-26 21:16] LABS: BASOPHILS # (AUTO) 0.1 K/uL (0.0-0.2); BASOPHILS % (AUTO) 1.2 % (0.0-2.0); EOSINOPHILS % (AUTO) 0.1 % (0.0-4.0); HEMATOCRIT 34.8 % (36-48); HEMOGLOBIN 11.4 g/dL (12.0-16.0); LYMPHOCYTES # (AUTO) 0.4 K/uL (1.0-5.5); LYMPHOCYTES % (AUTO) 4.1 % (20.5-51.5); MEAN CORPUSCULAR HEMOGLOBIN 27 pg (27-31); MEAN CORPUSCULAR HGB CONC 33 % (32-36); MEAN CORPUSCULAR VOLUME 84 fL (79.0-98.0); MONOCYTES # (AUTO) 0.5 K/uL (0.0-1.0); MONOCYTES % (AUTO) 4.7 % (1.7-9.3); NEUTROPHILS % (AUTO) 89.9 % (40.0-70.0); PLATELET COUNT (AUTO) 86 K/uL (130-430); RED BLOOD CELL COUNT(AUTO) 4.16 MIL/uL (4.2-6.2); RED CELL DISTRIBUTION WIDTH 18.7 % (9.0-15.0)
[2020-05-26] MEDS: SENNOSIDES 8.6 MG TABLET PO SCH (21:16)
[2020-05-26] MEDS: INSULIN GLARGINE 100 UNITS/ML 10 ML VIAL SUBCUT SCH (21:21)
[2020-05-26 21:27] LABS: INR 1.4 (0.8-1.2); PROTHROMBIN TIME 13.8 SECS (9.5-12.5)
[2020-05-27] VITALS (8 sets, daily range): BP systolic 125–150
[2020-05-27] MEDS: INSULIN LISPRO SLIDING SCALE 100 UNITS/ML VIAL (humaLOG) SUBCUT PRN ×3 (01:30→18:17)
[2020-05-27] MEDS: NACL 0.9% 1,000 ML IV SCH (05:37)
[2020-05-27] MEDS ORDERED: MORPHINE 2 MG/ML INJ. SYRINGE ONE ×4 (06:16→20:58)
[2020-05-27] MEDS: MORPHINE 2 MG/ML INJ. SYRINGE IVP PRN ×4 (06:23→21:00)
[2020-05-27 06:51] LABS: CALCIUM 7.8 mg/dL (8.4-11.0); CHLORIDE 101 mmol/L (98-107); GLUCOSE 145 mg/dL (70-99); POTASSIUM 4.3 mmol/L (3.5-5.1); SODIUM SERUM 136 mmol/L (136-145); UREA NITROGEN, BLOOD 36 mg/dL (8-21)
[2020-05-27 06:54] LABS: BASOPHILS % (AUTO) 0.2 % (0.0-2.0); EOSINOPHILS % (AUTO) 0.4 % (0.0-4.0); HEMATOCRIT 37.9 % (36-48); HEMOGLOBIN 12.6 g/dL (12.0-16.0); LYMPHOCYTES # (AUTO) 0.7 K/uL (1.0-5.5); LYMPHOCYTES % (AUTO) 7.4 % (20.5-51.5); MEAN CORPUSCULAR HEMOGLOBIN 27 pg (27-31); MEAN CORPUSCULAR HGB CONC 33 % (32-36); MEAN CORPUSCULAR VOLUME 83 fL (79.0-98.0); MONOCYTES # (AUTO) 0.6 K/uL (0.0-1.0); MONOCYTES % (AUTO) 6.1 % (1.7-9.3); NEUTROPHILS # (AUTO) 8.4 K/uL (1.8-7.7); NEUTROPHILS % (AUTO) 85.9 % (40.0-70.0); PLATELET COUNT (AUTO) 87 K/uL (130-430); RED BLOOD CELL COUNT(AUTO) 4.58 MIL/uL (4.2-6.2); WHITE BLOOD COUNT (AUTO) 9.8 K/uL (4.8-10.8)
[2020-05-27 06:58] LABS: ANION GAP < 3 (5-15); GFR AFRICAN AMERICAN 107 mL/min (>90)
[2020-05-27 07:09] LABS: INR 1.3 (0.8-1.2); PROTHROMBIN TIME 13.6 SECS (9.5-12.5)
[2020-05-27] MEDS: DECADRON 4 MG TABLET PO SCH (10:07)
[2020-05-27] MEDS: BALSAM PERU/CASTOR OIL 60 GM OINT...G. TP SCH (10:07)
[2020-05-27] MEDS: FAMOTIDINE 20 MG TABLET PO SCH (10:07)
[2020-05-27] MEDS: FUROSEMIDE 20 MG/2 ML VIAL IVP SCH (10:14)
[2020-05-27] MEDS: SENNOSIDES 8.6 MG TABLET PO SCH (20:47)
[2020-05-27] MEDS: INSULIN GLARGINE 100 UNITS/ML 10 ML VIAL SUBCUT SCH (20:49)
[2020-05-27] MEDS ORDERED: MORPHINE 2 MG/ML INJ. SYRINGE IVP ONE (23:00)
[2020-05-28] VITALS (10 sets, daily range): BP systolic 98–137
[2020-05-28] MEDS: NACL 0.9% 1,000 ML IV SCH (05:37)
[2020-05-28 06:32] LABS: BASOPHILS % (AUTO) 0.3 % (0.0-2.0); EOSINOPHILS % (AUTO) 0.2 % (0.0-4.0); HEMATOCRIT 38.8 % (36-48); HEMOGLOBIN 12.7 g/dL (12.0-16.0); LYMPHOCYTES # (AUTO) 0.8 K/uL (1.0-5.5); LYMPHOCYTES % (AUTO) 5.7 % (20.5-51.5); MEAN CORPUSCULAR HEMOGLOBIN 27 pg (27-31); MEAN CORPUSCULAR HGB CONC 33 % (32-36); MEAN CORPUSCULAR VOLUME 83 fL (79.0-98.0); MONOCYTES # (AUTO) 0.7 K/uL (0.0-1.0); MONOCYTES % (AUTO) 5.3 % (1.7-9.3); NEUTROPHILS # (AUTO) 12.3 K/uL (1.8-7.7); NEUTROPHILS % (AUTO) 88.5 % (40.0-70.0); PLATELET COUNT (AUTO) 126 K/uL (130-430); RED BLOOD CELL COUNT(AUTO) 4.66 MIL/uL (4.2-6.2); RED CELL DISTRIBUTION WIDTH 19.1 % (9.0-15.0)
[2020-05-28 07:01] LABS: CREATININE 0.68 mg/dL (0.55-1.30); POTASSIUM 4.2 mmol/L (3.5-5.1)
[2020-05-28] MEDS: BALSAM PERU/CASTOR OIL 60 GM OINT...G. TP SCH (07:57)
[2020-05-28] MEDS: FAMOTIDINE 20 MG TABLET PO SCH (09:00)
[2020-05-28] MEDS: DECADRON 4 MG TABLET PO SCH (09:00)
[2020-05-28] MEDS ORDERED: MORPHINE 2 MG/ML INJ. SYRINGE ONE (09:09)
[2020-05-28] MEDS ORDERED: LR 1,000 ML IV SCH (15:15)
[2020-05-28] MEDS ORDERED: HYDROmorphone 1 MG INJ. 1 MG/ML AMPUL IVP PRN ×2 (15:15)
[2020-05-28] MEDS ORDERED: ONDANSETRON HCL 4 MG/2 ML VIAL IVP PRN (15:15)
[2020-05-28] MEDS ORDERED: LABETALOL 100 MG/ 20ML VIAL IVP PRN (15:15)
[2020-05-28] MEDS ORDERED: hydrALAZINE HCL 20 MG/ML VIAL IVP PRN (15:15)
[2020-05-28] MEDS ORDERED: METOCLOPRAMIDE HCL 10 MG/2 ML VIAL IVP PRN (15:15)
[2020-05-28] MEDS ORDERED: MEPERIDINE HCL/PF 25 MG/ML DISP.SYRIN IVP PRN (15:15)
[2020-05-28] MEDS ORDERED: MIDAZOLAM HCL 5 MG/5 ML VIAL IVP PRN (15:30)
[2020-05-28] MEDS ORDERED: TIGECYCLINE 100 MG in NS 100 ML IV ONE (17:45)
[2020-05-28] MEDS ORDERED: HYDROcodone/ACETAMIN 5-325 MG TAB (NORCO/ VICODIN) PO PRN (18:15)
[2020-05-28] MEDS ORDERED: 0.45% NACL 1,000 ML IV SCH (18:15)
[2020-05-28] MEDS ORDERED: KETOROLAC TROMETHAMINE 15 MG VIAL ONE (18:32)
[2020-05-28] MEDS: KETOROLAC TROMETHAMINE 15 MG VIAL IVP PRN ×2 (18:35→22:26)
[2020-05-28 19:31] LABS: HEMATOCRIT 34.3 % (36-48); HEMOGLOBIN 11.1 g/dL (12.0-16.0); MEAN CORPUSCULAR HEMOGLOBIN 27 pg (27-31); MEAN CORPUSCULAR HGB CONC 32 % (32-36); MEAN CORPUSCULAR VOLUME 85 fL (79.0-98.0); PLATELET COUNT (AUTO) 195 K/uL (130-430); RED BLOOD CELL COUNT(AUTO) 4.04 MIL/uL (4.2-6.2); RED CELL DISTRIBUTION WIDTH 19.5 % (9.0-15.0)
[2020-05-28 19:49] LABS: CALCIUM 7.4 mg/dL (8.4-11.0); CREATININE 0.93 mg/dL (0.55-1.30); POTASSIUM 4.7 mmol/L (3.5-5.1)
[2020-05-28 19:51] LABS: WHITE BLOOD COUNT (AUTO) 38.8 K/uL (4.8-10.8)
[2020-05-28 20:13] LABS: BAND % (MANUAL) 10 % (0-6); BASOPHILS % (MANUAL) 0 % (0-2); EOSINOPHILS % (MANUAL) 0 % (0-7); LYMPHOCYTES % (MANUAL) 1 % (20-46); MONOCYTES % (MANUAL) 2 % (0-11)
[2020-05-28] MEDS: SENNOSIDES 8.6 MG TABLET PO SCH (20:22)
[2020-05-28] MEDS: INSULIN LISPRO SLIDING SCALE 100 UNITS/ML VIAL (humaLOG) SUBCUT PRN (20:25)
[2020-05-28] MEDS: INSULIN GLARGINE 100 UNITS/ML 10 ML VIAL SUBCUT SCH (20:27)
[2020-05-28] MEDS: CLINDAMYCIN 600 MG in D5W 50 ML IV SCH (22:25)
[2020-05-29] VITALS (14 sets, daily range): BP systolic 93–119
[2020-05-29] MEDS ORDERED: CLINDAMYCIN 600 MG in D5W 50 ML IV SCH ×2
[2020-05-29] MEDS: KETOROLAC TROMETHAMINE 15 MG VIAL IVP PRN (05:01)
[2020-05-29 06:24] LABS: BASOPHILS # (AUTO) 0.1 K/uL (0.0-0.2); BASOPHILS % (AUTO) 0.2 % (0.0-2.0); HEMATOCRIT 32.3 % (36-48); HEMOGLOBIN 10.5 g/dL (12.0-16.0); LYMPHOCYTES # (AUTO) 0.9 K/uL (1.0-5.5); LYMPHOCYTES % (AUTO) 3.2 % (20.5-51.5); MEAN CORPUSCULAR HEMOGLOBIN 27 pg (27-31); MEAN CORPUSCULAR HGB CONC 32 % (32-36); MEAN CORPUSCULAR VOLUME 84 fL (79.0-98.0); MONOCYTES # (AUTO) 1.6 K/uL (0.0-1.0); NEUTROPHILS # (AUTO) 24.9 K/uL (1.8-7.7); NEUTROPHILS % (AUTO) 90.6 % (40.0-70.0); PLATELET COUNT (AUTO) 160 K/uL (130-430); RED BLOOD CELL COUNT(AUTO) 3.84 MIL/uL (4.2-6.2); RED CELL DISTRIBUTION WIDTH 19.9 % (9.0-15.0); WHITE BLOOD COUNT (AUTO) 27.4 K/uL (4.8-10.8)
[2020-05-29] MEDS: CLINDAMYCIN 600 MG in D5W 50 ML IV SCH (06:33)
[2020-05-29] MEDS: INSULIN LISPRO SLIDING SCALE 100 UNITS/ML VIAL (humaLOG) SUBCUT PRN ×4 (06:36→20:26)
[2020-05-29 07:24] LABS: CALCIUM 7.6 mg/dL (8.4-11.0); CREATININE 0.96 mg/dL (0.55-1.30)
[2020-05-29] MEDS: TIGECYCLINE 50 MG in NS 100 ML IV SCH ×2 (08:00→20:15)
[2020-05-29 08:17] LABS: POTASSIUM 5.2 mmol/L (3.5-5.1)
[2020-05-29] MEDS: HEPARIN SODIUM,PORCINE 5,000 UNITS/ML VIAL SUBCUT SCH ×2 (08:22→20:31)
[2020-05-29] MEDS: BALSAM PERU/CASTOR OIL 60 GM OINT...G. TP SCH (08:22)
[2020-05-29] MEDS: FAMOTIDINE 20 MG TABLET PO SCH (08:22)
[2020-05-29] MEDS: HYDROcodone/ACETAMIN 10-325 MG TAB PO PRN ×3 (08:35→11:54)
[2020-05-29] MEDS ORDERED: NACL 0.9% 1,000 ML IV SCH (09:15)
[2020-05-29] MEDS: NACL 0.9% 1,000 ML IV SCH (11:53)
[2020-05-29] MEDS: LEVOFLOXACIN 500 MG/D5W 100 ML IV SCH (13:07)
[2020-05-29] MEDS: NORMAL SALINE 5 ML DISP.SYRIN IVF SCH ×2 (13:13→21:26)
[2020-05-29] MEDS ORDERED: NALOXONE HCL 0.4 MG/ML AMP (NARCAN) IVP PRN ×3 (13:30→13:45)
[2020-05-29] MEDS ORDERED: MORPHINE 2 MG/ML INJ. SYRINGE IVP PRN (13:30)
[2020-05-29] MEDS: HYDROcodone/ACETAMIN 5-325 MG TAB (NORCO/ VICODIN) PO PRN ×2 (17:28→22:34)
[2020-05-29] MEDS: MORPHINE 2 MG/ML INJ. SYRINGE IVP PRN (20:18)
[2020-05-29] MEDS: INSULIN GLARGINE 100 UNITS/ML 10 ML VIAL SUBCUT SCH (20:29)
[2020-05-29] MEDS: SENNOSIDES 8.6 MG TABLET PO SCH (21:00)
[2020-05-30] VITALS (7 sets, daily range): BP systolic 107–140
[2020-05-30] MEDS: MORPHINE 2 MG/ML INJ. SYRINGE IVP PRN ×4 (00:32→22:42)
[2020-05-30] MEDS: HYDROcodone/ACETAMIN 5-325 MG TAB (NORCO/ VICODIN) PO PRN (02:35)
[2020-05-30] MEDS: NACL 0.9% 1,000 ML IV SCH ×2 (05:07→17:41)
[2020-05-30] MEDS: NORMAL SALINE 5 ML DISP.SYRIN IVF SCH ×3 (05:07→22:19)
[2020-05-30] MEDS: INSULIN LISPRO SLIDING SCALE 100 UNITS/ML VIAL (humaLOG) SUBCUT PRN ×3 (06:21→17:02)
[2020-05-30 08:07] LABS: CALCIUM 7.4 mg/dL (8.4-11.0); CREATININE 1.11 mg/dL (0.55-1.30); POTASSIUM 5.4 mmol/L (3.5-5.1)
[2020-05-30] MEDS: FAMOTIDINE 20 MG TABLET PO SCH (08:42)
[2020-05-30] MEDS: HEPARIN SODIUM,PORCINE 5,000 UNITS/ML VIAL SUBCUT SCH ×2 (08:44→22:24)
[2020-05-30] MEDS: TIGECYCLINE 50 MG in NS 100 ML IV SCH ×2 (08:49→22:12)
[2020-05-30] MEDS: BALSAM PERU/CASTOR OIL 60 GM OINT...G. TP SCH (08:51)
[2020-05-30 09:52] LABS: BASOPHILS % (AUTO) 0.2 % (0.0-2.0); EOSINOPHILS % (AUTO) 0.1 % (0.0-4.0); HEMATOCRIT 28.9 % (36-48); HEMOGLOBIN 9.3 g/dL (12.0-16.0); LYMPHOCYTES # (AUTO) 1.3 K/uL (1.0-5.5); LYMPHOCYTES % (AUTO) 6.9 % (20.5-51.5); MEAN CORPUSCULAR HEMOGLOBIN 27 pg (27-31); MEAN CORPUSCULAR HGB CONC 32 % (32-36); MEAN CORPUSCULAR VOLUME 85 fL (79.0-98.0); MONOCYTES # (AUTO) 1.3 K/uL (0.0-1.0); MONOCYTES % (AUTO) 7.1 % (1.7-9.3); NEUTROPHILS # (AUTO) 16.1 K/uL (1.8-7.7); NEUTROPHILS % (AUTO) 85.7 % (40.0-70.0); PLATELET COUNT (AUTO) 95 K/uL (130-430); RED BLOOD CELL COUNT(AUTO) 3.39 MIL/uL (4.2-6.2); RED CELL DISTRIBUTION WIDTH 21.3 % (9.0-15.0)
[2020-05-30 09:53] LABS: WHITE BLOOD COUNT (AUTO) 18.8 K/uL (4.8-10.8)
[2020-05-30] MEDS ORDERED: SODIUM POLYSTYRENE SULFONATE 15 GM/60 ML UDBTL PO ONE (10:30)
[2020-05-30] MEDS: LEVOFLOXACIN 500 MG/D5W 100 ML IV SCH (13:00)
[2020-05-30] MEDS: DOCUSATE SODIUM 250 MG CAPSULE PO SCH (22:12)
[2020-05-30] MEDS: SENNOSIDES 8.6 MG TABLET PO SCH (22:13)
[2020-05-30] MEDS: INSULIN GLARGINE 100 UNITS/ML 10 ML VIAL SUBCUT SCH (22:32)
[2020-05-31] MEDS: HYDROcodone/ACETAMIN 5-325 MG TAB (NORCO/ VICODIN) PO PRN ×2 (02:00→14:13)
[2020-05-31 02:50] VITALS: BP_SYST 144
[2020-05-31 07:05] LABS: BASOPHILS % (AUTO) 0.3 % (0.0-2.0); EOSINOPHILS # (AUTO) 0.1 K/uL (0.0-0.4); EOSINOPHILS % (AUTO) 0.4 % (0.0-4.0); HEMATOCRIT 27.9 % (36-48); HEMOGLOBIN 9.2 g/dL (12.0-16.0); LYMPHOCYTES # (AUTO) 1.2 K/uL (1.0-5.5); LYMPHOCYTES % (AUTO) 8.5 % (20.5-51.5); MEAN CORPUSCULAR HEMOGLOBIN 28 pg (27-31); MEAN CORPUSCULAR HGB CONC 33 % (32-36); MEAN CORPUSCULAR VOLUME 85 fL (79.0-98.0); MONOCYTES # (AUTO) 0.8 K/uL (0.0-1.0); MONOCYTES % (AUTO) 5.7 % (1.7-9.3); NEUTROPHILS # (AUTO) 11.6 K/uL (1.8-7.7); NEUTROPHILS % (AUTO) 85.1 % (40.0-70.0); PLATELET COUNT (AUTO) 100 K/uL (130-430); RED CELL DISTRIBUTION WIDTH 21.1 % (9.0-15.0); WHITE BLOOD COUNT (AUTO) 13.6 K/uL (4.8-10.8)
[2020-05-31] MEDS: NACL 0.9% 1,000 ML IV SCH ×2 (07:10→19:59)
[2020-05-31] MEDS: NORMAL SALINE 5 ML DISP.SYRIN IVF SCH ×3 (07:10→21:22)
[2020-05-31] MEDS: INSULIN LISPRO SLIDING SCALE 100 UNITS/ML VIAL (humaLOG) SUBCUT PRN ×2 (07:13→21:21)
[2020-05-31 07:42] LABS: CALCIUM 7.5 mg/dL (8.4-11.0); CREATININE 0.84 mg/dL (0.55-1.30); POTASSIUM 4.1 mmol/L (3.5-5.1)
[2020-05-31] MEDS ORDERED: ONDANSETRON HCL 4 MG/2 ML VIAL ONE ×2 (08:19→21:13)
[2020-05-31] MEDS: ONDANSETRON HCL 4 MG/2 ML VIAL IVP PRN ×2 (08:23→21:27)
[2020-05-31] MEDS: MORPHINE 2 MG/ML INJ. SYRINGE IVP PRN ×2 (08:26→21:26)
[2020-05-31 08:30] VITALS: BP_SYST 127
[2020-05-31] MEDS: TIGECYCLINE 50 MG in NS 100 ML IV SCH ×2 (08:45→21:21)
[2020-05-31] MEDS: DOCUSATE SODIUM 250 MG CAPSULE PO SCH ×2 (10:04→21:22)
[2020-05-31] MEDS: FAMOTIDINE 20 MG TABLET PO SCH (10:04)
[2020-05-31] MEDS: HEPARIN SODIUM,PORCINE 5,000 UNITS/ML VIAL SUBCUT SCH ×2 (10:05→21:24)
[2020-05-31] MEDS ORDERED: METOCLOPRAMIDE HCL 10 MG/2 ML VIAL IVP PRN (12:30)
[2020-05-31 13:16] VITALS: BP_SYST 130
[2020-05-31] MEDS: LEVOFLOXACIN 500 MG/D5W 100 ML IV SCH (14:12)
[2020-05-31] MEDS: BALSAM PERU/CASTOR OIL 60 GM OINT...G. TP SCH (14:13)
[2020-05-31] MEDS ORDERED: IBUPROFEN 400 MG TABLET PO PRN (18:45)
[2020-05-31 20:00] VITALS: BP_SYST 133
[2020-05-31] MEDS: SENNOSIDES 8.6 MG TABLET PO SCH (21:22)
[2020-05-31] MEDS: INSULIN GLARGINE 100 UNITS/ML 10 ML VIAL SUBCUT SCH (21:24)
[2020-06-01 01:53] VITALS: BP_SYST 101
[2020-06-01] MEDS: MORPHINE 2 MG/ML INJ. SYRINGE IVP PRN (04:26)
[2020-06-01] MEDS: NORMAL SALINE 5 ML DISP.SYRIN IVF SCH ×3 (06:05→21:18)
[2020-06-01] MEDS: NACL 0.9% 1,000 ML IV SCH (06:05)
[2020-06-01 07:42] LABS: BASOPHILS % (AUTO) 0.2 % (0.0-2.0); EOSINOPHILS # (AUTO) 0.1 K/uL (0.0-0.4); EOSINOPHILS % (AUTO) 0.5 % (0.0-4.0); HEMATOCRIT 27.4 % (36-48); HEMOGLOBIN 9.1 g/dL (12.0-16.0); LYMPHOCYTES # (AUTO) 1.4 K/uL (1.0-5.5); LYMPHOCYTES % (AUTO) 12.2 % (20.5-51.5); MEAN CORPUSCULAR HEMOGLOBIN 28 pg (27-31); MEAN CORPUSCULAR HGB CONC 33 % (32-36); MEAN CORPUSCULAR VOLUME 85 fL (79.0-98.0); MONOCYTES # (AUTO) 0.7 K/uL (0.0-1.0); MONOCYTES % (AUTO) 5.9 % (1.7-9.3); NEUTROPHILS % (AUTO) 81.2 % (40.0-70.0); PLATELET COUNT (AUTO) 110 K/uL (130-430); RED BLOOD CELL COUNT(AUTO) 3.23 MIL/uL (4.2-6.2); RED CELL DISTRIBUTION WIDTH 21.4 % (9.0-15.0); WHITE BLOOD COUNT (AUTO) 11.1 K/uL (4.8-10.8)
[2020-06-01 07:50] VITALS: BP_SYST 114
[2020-06-01 07:55] LABS: CALCIUM 7.4 mg/dL (8.4-11.0); CREATININE 0.65 mg/dL (0.55-1.30); POTASSIUM 3.9 mmol/L (3.5-5.1)
[2020-06-01] MEDS: HEPARIN SODIUM,PORCINE 5,000 UNITS/ML VIAL SUBCUT SCH ×2 (10:03→20:40)
[2020-06-01] MEDS: FAMOTIDINE 20 MG TABLET PO SCH (10:04)
[2020-06-01] MEDS: DOCUSATE SODIUM 250 MG CAPSULE PO SCH ×2 (10:04→20:45)
[2020-06-01] MEDS: TIGECYCLINE 50 MG in NS 100 ML IV SCH ×2 (10:04→20:24)
[2020-06-01] MEDS: HYDROcodone/ACETAMIN 5-325 MG TAB (NORCO/ VICODIN) PO PRN (10:15)
[2020-06-01] MEDS: BALSAM PERU/CASTOR OIL 60 GM OINT...G. TP SCH (12:07)
[2020-06-01] MEDS: INSULIN LISPRO SLIDING SCALE 100 UNITS/ML VIAL (humaLOG) SUBCUT PRN ×3 (12:07→20:39)
[2020-06-01 12:14] VITALS: BP_SYST 121
[2020-06-01] MEDS ORDERED: HYDROcodone/ACETAMIN 10-325 MG TAB ONE ×3 (13:52→22:34)
[2020-06-01] MEDS: HYDROcodone/ACETAMIN 10-325 MG TAB PO PRN ×3 (13:52→22:36)
[2020-06-01] MEDS: LEVOFLOXACIN 500 MG/D5W 100 ML IV SCH (13:55)
[2020-06-01 16:13] VITALS: BP_SYST 107
[2020-06-01 20:00] VITALS: BP_SYST 121
[2020-06-01] MEDS: INSULIN GLARGINE 100 UNITS/ML 10 ML VIAL SUBCUT SCH (20:38)
[2020-06-01] MEDS: SENNOSIDES 8.6 MG TABLET PO SCH (20:45)
[2020-06-02 00:17] VITALS: BP_SYST 93
[2020-06-02] MEDS: NACL 0.9% 1,000 ML IV SCH ×2 (01:56→21:15)
[2020-06-02] MEDS: HYDROcodone/ACETAMIN 10-325 MG TAB PO PRN ×3 (02:44→19:40)
[2020-06-02] MEDS ORDERED: HYDROcodone/ACETAMIN 10-325 MG TAB ONE (02:44)
[2020-06-02] MEDS: NORMAL SALINE 5 ML DISP.SYRIN IVF SCH ×3 (05:40→21:08)
[2020-06-02] MEDS: HYDROcodone/ACETAMIN 5-325 MG TAB (NORCO/ VICODIN) PO PRN ×2 (05:40→08:41)
[2020-06-02 07:15] LABS: BASOPHILS # (AUTO) 0.1 K/uL (0.0-0.2); BASOPHILS % (AUTO) 0.7 % (0.0-2.0); EOSINOPHILS # (AUTO) 0.2 K/uL (0.0-0.4); EOSINOPHILS % (AUTO) 1.2 % (0.0-4.0); HEMATOCRIT 32.8 % (36-48); HEMOGLOBIN 10.8 g/dL (12.0-16.0); LYMPHOCYTES % (AUTO) 13.3 % (20.5-51.5); MEAN CORPUSCULAR HEMOGLOBIN 28 pg (27-31); MEAN CORPUSCULAR HGB CONC 33 % (32-36); MEAN CORPUSCULAR VOLUME 86 fL (79.0-98.0); MONOCYTES % (AUTO) 6.5 % (1.7-9.3); NEUTROPHILS # (AUTO) 11.7 K/uL (1.8-7.7); NEUTROPHILS % (AUTO) 78.3 % (40.0-70.0); PLATELET COUNT (AUTO) 124 K/uL (130-430); RED BLOOD CELL COUNT(AUTO) 3.81 MIL/uL (4.2-6.2); RED CELL DISTRIBUTION WIDTH 22.2 % (9.0-15.0); WHITE BLOOD COUNT (AUTO) 14.9 K/uL (4.8-10.8)
[2020-06-02 07:27] LABS: CALCIUM 7.5 mg/dL (8.4-11.0); CREATININE 0.83 mg/dL (0.55-1.30); POTASSIUM 4.2 mmol/L (3.5-5.1)
[2020-06-02 08:00] VITALS: BP_SYST 110
[2020-06-02] MEDS: TIGECYCLINE 50 MG in NS 100 ML IV SCH ×2 (08:40→19:40)
[2020-06-02] MEDS: DOCUSATE SODIUM 250 MG CAPSULE PO SCH ×2 (08:40→21:07)
[2020-06-02] MEDS: FAMOTIDINE 20 MG TABLET PO SCH (08:40)
[2020-06-02] MEDS: HEPARIN SODIUM,PORCINE 5,000 UNITS/ML VIAL SUBCUT SCH ×2 (08:42→21:07)
[2020-06-02] MEDS: BALSAM PERU/CASTOR OIL 60 GM OINT...G. TP SCH (08:45)
[2020-06-02] MEDS ORDERED: ONDANSETRON HCL 4 MG/2 ML VIAL ONE (10:02)
[2020-06-02] MEDS: ONDANSETRON HCL 4 MG/2 ML VIAL IVP PRN ×3 (10:05→23:04)
[2020-06-02 11:29] VITALS: BP_SYST 111
[2020-06-02] MEDS: INSULIN LISPRO SLIDING SCALE 100 UNITS/ML VIAL (humaLOG) SUBCUT PRN ×3 (12:04→21:05)
[2020-06-02] MEDS: LEVOFLOXACIN 500 MG/D5W 100 ML IV SCH (12:05)
[2020-06-02 16:00] VITALS: BP_SYST 120
[2020-06-02 19:30] VITALS: BP_SYST 121
[2020-06-02] MEDS: INSULIN GLARGINE 100 UNITS/ML 10 ML VIAL SUBCUT SCH (21:06)
[2020-06-02] MEDS: SENNOSIDES 8.6 MG TABLET PO SCH (21:08)
[2020-06-03] VITALS: BP_SYST 115
[2020-06-03] MEDS: HYDROcodone/ACETAMIN 10-325 MG TAB PO PRN ×4 (00:52→13:49)
[2020-06-03] MEDS: NORMAL SALINE 5 ML DISP.SYRIN IVF SCH ×3 (05:24→22:31)
[2020-06-03] MEDS: INSULIN LISPRO SLIDING SCALE 100 UNITS/ML VIAL (humaLOG) SUBCUT PRN ×4 (06:03→20:29)
[2020-06-03 06:56] LABS: BASOPHILS # (AUTO) 0.1 K/uL (0.0-0.2); BASOPHILS % (AUTO) 0.6 % (0.0-2.0); EOSINOPHILS # (AUTO) 0.1 K/uL (0.0-0.4); EOSINOPHILS % (AUTO) 0.6 % (0.0-4.0); HEMATOCRIT 34.6 % (36-48); HEMOGLOBIN 11.3 g/dL (12.0-16.0); LYMPHOCYTES # (AUTO) 1.5 K/uL (1.0-5.5); LYMPHOCYTES % (AUTO) 9.8 % (20.5-51.5); MEAN CORPUSCULAR HEMOGLOBIN 28 pg (27-31); MEAN CORPUSCULAR HGB CONC 33 % (32-36); MEAN CORPUSCULAR VOLUME 87 fL (79.0-98.0); MONOCYTES # (AUTO) 0.9 K/uL (0.0-1.0); MONOCYTES % (AUTO) 5.9 % (1.7-9.3); NEUTROPHILS # (AUTO) 12.8 K/uL (1.8-7.7); NEUTROPHILS % (AUTO) 83.1 % (40.0-70.0); PLATELET COUNT (AUTO) 109 K/uL (130-430); RED BLOOD CELL COUNT(AUTO) 3.98 MIL/uL (4.2-6.2); RED CELL DISTRIBUTION WIDTH 23.8 % (9.0-15.0); WHITE BLOOD COUNT (AUTO) 15.4 K/uL (4.8-10.8)
[2020-06-03 07:21] LABS: ALBUMIN 1.6 g/dL (3.4-4.8); CALCIUM 7.6 mg/dL (8.4-11.0); CREATININE 0.75 mg/dL (0.55-1.30); POTASSIUM 4.6 mmol/L (3.5-5.1); TOTAL BILIRUBIN 2.6 mg/dL (0.0-1.0)
[2020-06-03] MEDS: TIGECYCLINE 50 MG in NS 100 ML IV SCH (08:58)
[2020-06-03] MEDS: BALSAM PERU/CASTOR OIL 60 GM OINT...G. TP SCH (08:59)
[2020-06-03] MEDS: ONDANSETRON HCL 4 MG/2 ML VIAL IVP PRN (08:59)
[2020-06-03] MEDS: DOCUSATE SODIUM 250 MG CAPSULE PO SCH ×2 (08:59→20:24)
[2020-06-03] MEDS: HEPARIN SODIUM,PORCINE 5,000 UNITS/ML VIAL SUBCUT SCH ×2 (08:59→20:28)
[2020-06-03] MEDS: FAMOTIDINE 20 MG TABLET PO SCH (08:59)
[2020-06-03 09:09] VITALS: BP_SYST 112
[2020-06-03] MEDS ORDERED: POTASSIUM CHLORIDE 20 MEQ/PKT PACKET PO ONE (11:45)
[2020-06-03] MEDS ORDERED: FUROSEMIDE 40 MG/4 ML VIAL IVP ONE (11:45)
[2020-06-03 12:00] VITALS: BP_SYST 90
[2020-06-03] MEDS: LEVOFLOXACIN 500 MG/D5W 100 ML IV SCH (12:56)
[2020-06-03] MEDS ORDERED: METOCLOPRAMIDE HCL 10 MG/2 ML VIAL ONE ×2 (16:22→22:28)
[2020-06-03] MEDS ORDERED: CELE200C PO (16:26)
[2020-06-03] MEDS ORDERED: FEN12PAT TD (16:26)
[2020-06-03] MEDS ORDERED: FURO-149 PO (16:26)
[2020-06-03] MEDS: METOCLOPRAMIDE HCL 10 MG/2 ML VIAL IVP SCH ×2 (16:26→22:31)
[2020-06-03] MEDS: NACL 0.9% 1,000 ML IV SCH (16:27)
[2020-06-03] MEDS: oxyCODONE HCL 5 MG TABLET PO PRN (18:15)
[2020-06-03 20:00] VITALS: BP_SYST 117
[2020-06-03] MEDS: SENNOSIDES 8.6 MG TABLET PO SCH (20:24)
[2020-06-03] MEDS: INSULIN GLARGINE 100 UNITS/ML 10 ML VIAL SUBCUT SCH (20:29)
[2020-06-03] MEDS ORDERED: FLUCONAZOLE 200 mg/ NS 100 ML IV ONE (20:44)
[2020-06-03] MEDS ORDERED: metroNIDAZOLE 500 mg/NS 100 ML IV ONE (20:48)
[2020-06-03] MEDS: FLUCONAZOLE 200 mg/ NS 100 ML IV SCH (21:00)
[2020-06-03] MEDS ORDERED: oxyCODONE HCL 10 MG TAB.ER.12H PO SCH (21:00)
[2020-06-03] MEDS: metroNIDAZOLE 250 mg/NS 50 ML IV SCH (22:33)
[2020-06-04] VITALS: BP_SYST 121
[2020-06-04] MEDS: ONDANSETRON HCL 4 MG/2 ML VIAL IVP PRN (00:20)
[2020-06-04] MEDS: oxyCODONE HCL 5 MG TABLET PO PRN ×3 (02:49→22:22)
[2020-06-04] MEDS: NACL 0.9% 1,000 ML IV SCH ×2 (03:03→18:24)
[2020-06-04] MEDS ORDERED: METOCLOPRAMIDE HCL 10 MG/2 ML VIAL ONE ×3 (06:02→21:17)
[2020-06-04] MEDS: METOCLOPRAMIDE HCL 10 MG/2 ML VIAL IVP SCH ×3 (06:04→21:13)
[2020-06-04] MEDS: metroNIDAZOLE 250 mg/NS 50 ML IV SCH ×3 (06:04→21:12)
[2020-06-04] MEDS: NORMAL SALINE 5 ML DISP.SYRIN IVF SCH ×3 (06:08→21:12)
[2020-06-04] MEDS: INSULIN LISPRO SLIDING SCALE 100 UNITS/ML VIAL (humaLOG) SUBCUT PRN ×4 (06:14→20:14)
[2020-06-04 06:45] LABS: BASOPHILS # (AUTO) 0.1 K/uL (0.0-0.2); BASOPHILS % (AUTO) 0.5 % (0.0-2.0); EOSINOPHILS # (AUTO) 0.1 K/uL (0.0-0.4); EOSINOPHILS % (AUTO) 0.7 % (0.0-4.0); HEMATOCRIT 32.6 % (36-48); HEMOGLOBIN 10.7 g/dL (12.0-16.0); LYMPHOCYTES # (AUTO) 1.8 K/uL (1.0-5.5); LYMPHOCYTES % (AUTO) 9.7 % (20.5-51.5); MEAN CORPUSCULAR HEMOGLOBIN 28 pg (27-31); MEAN CORPUSCULAR HGB CONC 33 % (32-36); MEAN CORPUSCULAR VOLUME 86 fL (79.0-98.0); MONOCYTES # (AUTO) 1.3 K/uL (0.0-1.0); NEUTROPHILS # (AUTO) 15.2 K/uL (1.8-7.7); NEUTROPHILS % (AUTO) 82.1 % (40.0-70.0); PLATELET COUNT (AUTO) 105 K/uL (130-430); RED BLOOD CELL COUNT(AUTO) 3.78 MIL/uL (4.2-6.2); RED CELL DISTRIBUTION WIDTH 23.9 % (9.0-15.0); WHITE BLOOD COUNT (AUTO) 18.5 K/uL (4.8-10.8)
[2020-06-04 07:26] LABS: CALCIUM 7.2 mg/dL (8.4-11.0); CREATININE 0.83 mg/dL (0.55-1.30); POTASSIUM 4.5 mmol/L (3.5-5.1)
[2020-06-04 07:53] VITALS: BP_SYST 112
[2020-06-04] MEDS: PANTOPRAZOLE SODIUM 40 MG TAB PO SCH (09:16)
[2020-06-04] MEDS: DOCUSATE SODIUM 250 MG CAPSULE PO SCH ×2 (09:17→20:08)
[2020-06-04] MEDS: HEPARIN SODIUM,PORCINE 5,000 UNITS/ML VIAL SUBCUT SCH ×2 (09:18→20:15)
[2020-06-04] MEDS ORDERED: NALOXONE HCL 0.4 MG/ML AMP (NARCAN) IVP PRN ×2 (12:00)
[2020-06-04] MEDS ORDERED: HYDROcodone/ACETAMIN 10-325 MG TAB PO PRN (12:00)
[2020-06-04] MEDS ORDERED: HYDROcodone/ACETAMIN 5-325 MG TAB (NORCO/ VICODIN) PO PRN (12:00)
[2020-06-04 12:13] VITALS: BP_SYST 104
[2020-06-04] MEDS: LEVOFLOXACIN 500 MG/D5W 100 ML IV SCH (13:46)
[2020-06-04 16:15] VITALS: BP_SYST 101
[2020-06-04] MEDS: BALSAM PERU/CASTOR OIL 60 GM OINT...G. TP SCH (16:45)
[2020-06-04] MEDS ORDERED: [UNRECOGNIZED DRUG - REMARK] XX SCH (18:30)
[2020-06-04 20:00] VITALS: BP_SYST 118
[2020-06-04] MEDS: FLUCONAZOLE 200 mg/ NS 100 ML IV SCH (20:08)
[2020-06-04] MEDS: SENNOSIDES 8.6 MG TABLET PO SCH (20:08)
[2020-06-04] MEDS: fentaNYL 12 MCG/HR PATCH TD SCH (20:15)
[2020-06-04] MEDS: INSULIN GLARGINE 100 UNITS/ML 10 ML VIAL SUBCUT SCH (20:15)
[2020-06-04 21:48] LABS: BILIRUBIN,URINE 1+ (NEGATIVE); CLARITY/URINE SL CLOUDY (CLEAR); COLOR,URINE YELLOW (YELLOW); GLUCOSE,URINE NEGATIVE (NEGATIVE); KETONES,URINE NEGATIVE (NEGATIVE); LEUKOCYTE ESTERASE ,URINE TRACE (NEGATIVE); NITRITE, URINE NEGATIVE (NEGATIVE); PROTEIN URINE TRACE (NEGATIVE)
[2020-06-04 21:54] LABS: BLOOD, URINE TRACE (NEGATIVE)
[2020-06-04 22:01] LABS: BACTERIA,URINE MANY /HPF (None Seen); CALCIUM OXALATE CRYSTALS,UR 0-10 /HPF (None Seen); YEAST,URINE Many /HPF (None Seen)
[2020-06-04 22:02] LABS: MUCUS,URINE None Seen /LPF (None Seen); URINE AMORPHOUS URATE 3+ /HPF (None Seen)
[2020-06-05] VITALS: BP_SYST 107
[2020-06-05] MEDS ORDERED: ZOLPIDEM TARTRATE 5 MG TABLET PO ONE (02:30)
[2020-06-05] MEDS ORDERED: ZOLPIDEM TARTRATE 5 MG TABLET PO PRN ×2 (02:30→19:45)
[2020-06-05] MEDS: NACL 0.9% 1,000 ML IV SCH ×2 (04:42→10:03)
[2020-06-05] MEDS ORDERED: METOCLOPRAMIDE HCL 10 MG/2 ML VIAL ONE ×3 (05:24→21:26)
[2020-06-05] MEDS: NORMAL SALINE 5 ML DISP.SYRIN IVF SCH ×3 (05:28→21:41)
[2020-06-05] MEDS: metroNIDAZOLE 250 mg/NS 50 ML IV SCH ×2 (05:28→13:16)
[2020-06-05] MEDS: METOCLOPRAMIDE HCL 10 MG/2 ML VIAL IVP SCH ×3 (05:28→21:40)
[2020-06-05 06:37] LABS: BASOPHILS # (AUTO) 0.1 K/uL (0.0-0.2); BASOPHILS % (AUTO) 0.5 % (0.0-2.0); EOSINOPHILS # (AUTO) 0.2 K/uL (0.0-0.4); EOSINOPHILS % (AUTO) 0.9 % (0.0-4.0); HEMATOCRIT 33.7 % (36-48); HEMOGLOBIN 10.9 g/dL (12.0-16.0); LYMPHOCYTES # (AUTO) 1.7 K/uL (1.0-5.5); LYMPHOCYTES % (AUTO) 9.5 % (20.5-51.5); MEAN CORPUSCULAR HEMOGLOBIN 29 pg (27-31); MEAN CORPUSCULAR HGB CONC 33 % (32-36); MEAN CORPUSCULAR VOLUME 88 fL (79.0-98.0); MONOCYTES # (AUTO) 1.1 K/uL (0.0-1.0); MONOCYTES % (AUTO) 6.1 % (1.7-9.3); NEUTROPHILS # (AUTO) 14.9 K/uL (1.8-7.7); PLATELET COUNT (AUTO) 102 K/uL (130-430); RED BLOOD CELL COUNT(AUTO) 3.82 MIL/uL (4.2-6.2); RED CELL DISTRIBUTION WIDTH 25.8 % (9.0-15.0); WHITE BLOOD COUNT (AUTO) 17.9 K/uL (4.8-10.8)
[2020-06-05 06:39] LABS: ALBUMIN 1.5 g/dL (3.4-4.8); CALCIUM 7.3 mg/dL (8.4-11.0); CREATININE 0.84 mg/dL (0.55-1.30); POTASSIUM 4.7 mmol/L (3.5-5.1); TOTAL BILIRUBIN 2.3 mg/dL (0.0-1.0)
[2020-06-05 08:00] VITALS: BP_SYST 119
[2020-06-05] MEDS ORDERED: SPIRONOLACTONE 50 MG TABLET (ALDACTONE) PO ONE (09:15)
[2020-06-05] MEDS: PANTOPRAZOLE SODIUM 40 MG TAB PO SCH (09:33)
[2020-06-05] MEDS: DOCUSATE SODIUM 250 MG CAPSULE PO SCH ×2 (09:33→21:19)
[2020-06-05] MEDS: oxyCODONE HCL 5 MG TABLET PO PRN ×3 (09:34→23:02)
[2020-06-05] MEDS: FUROSEMIDE 40 MG TABLET PO SCH (09:37)
[2020-06-05] MEDS: HEPARIN SODIUM,PORCINE 5,000 UNITS/ML VIAL SUBCUT SCH ×2 (09:38→21:36)
[2020-06-05] MEDS: BALSAM PERU/CASTOR OIL 60 GM OINT...G. TP SCH (09:42)
[2020-06-05] MEDS: INSULIN LISPRO SLIDING SCALE 100 UNITS/ML VIAL (humaLOG) SUBCUT PRN ×3 (11:22→21:38)
[2020-06-05 12:08] VITALS: BP_SYST 92
[2020-06-05 13:18] VITALS: BP_SYST 119
[2020-06-05] MEDS ORDERED: KETOROLAC TROMETHAMINE 15 MG VIAL IVP PRN (14:15)
[2020-06-05 16:09] VITALS: BP_SYST 106
[2020-06-05 20:00] VITALS: BP_SYST 90
[2020-06-05] MEDS: FLUCONAZOLE 200 mg/ NS 100 ML IV SCH (21:17)
[2020-06-05] MEDS: SENNOSIDES 8.6 MG TABLET PO SCH (21:33)
[2020-06-05] MEDS: INSULIN GLARGINE 100 UNITS/ML 10 ML VIAL SUBCUT SCH (21:37)
[2020-06-05] MEDS: MEROPENEM 1 GM in NS 100 ML IV SCH (22:50)
[2020-06-06 01:44] VITALS: BP_SYST 100
[2020-06-06] MEDS: NACL 0.9% 1,000 ML IV SCH (02:20)
[2020-06-06] MEDS: ACETAMINOPHEN 325 MG TABLET PO PRN (02:57)
[2020-06-06] MEDS: METOCLOPRAMIDE HCL 10 MG/2 ML VIAL IVP SCH ×3 (05:23→20:59)
[2020-06-06] MEDS ORDERED: METOCLOPRAMIDE HCL 10 MG/2 ML VIAL ONE ×3 (05:23→20:48)
[2020-06-06] MEDS: MEROPENEM 1 GM in NS 100 ML IV SCH ×3 (05:23→22:05)
[2020-06-06] MEDS: NORMAL SALINE 5 ML DISP.SYRIN IVF SCH ×3 (05:26→22:06)
[2020-06-06] MEDS: oxyCODONE HCL 5 MG TABLET PO PRN ×2 (05:35→15:09)
[2020-06-06 06:40] LABS: BASOPHILS # (AUTO) 0.1 K/uL (0.0-0.2); BASOPHILS % (AUTO) 0.6 % (0.0-2.0); EOSINOPHILS # (AUTO) 0.2 K/uL (0.0-0.4); EOSINOPHILS % (AUTO) 1.5 % (0.0-4.0); HEMATOCRIT 33.4 % (36-48); HEMOGLOBIN 10.9 g/dL (12.0-16.0); LYMPHOCYTES # (AUTO) 1.7 K/uL (1.0-5.5); LYMPHOCYTES % (AUTO) 10.5 % (20.5-51.5); MEAN CORPUSCULAR HEMOGLOBIN 29 pg (27-31); MEAN CORPUSCULAR HGB CONC 33 % (32-36); MEAN CORPUSCULAR VOLUME 89 fL (79.0-98.0); MONOCYTES % (AUTO) 6.3 % (1.7-9.3); NEUTROPHILS # (AUTO) 13.1 K/uL (1.8-7.7); NEUTROPHILS % (AUTO) 81.1 % (40.0-70.0); PLATELET COUNT (AUTO) 74 K/uL (130-430); RED BLOOD CELL COUNT(AUTO) 3.77 MIL/uL (4.2-6.2); RED CELL DISTRIBUTION WIDTH 26.5 % (9.0-15.0); WHITE BLOOD COUNT (AUTO) 16.1 K/uL (4.8-10.8)
[2020-06-06 06:55] LABS: ALBUMIN 1.5 g/dL (3.4-4.8); CALCIUM 7.2 mg/dL (8.4-11.0); CREATININE 1.1 mg/dL (0.55-1.30); POTASSIUM 4.9 mmol/L (3.5-5.1); TOTAL BILIRUBIN 2.6 mg/dL (0.0-1.0)
[2020-06-06 08:11] VITALS: BP_SYST 101
[2020-06-06] MEDS: DOCUSATE SODIUM 250 MG CAPSULE PO SCH ×2 (09:04→20:12)
[2020-06-06] MEDS: PANTOPRAZOLE SODIUM 40 MG TAB PO SCH (09:04)
[2020-06-06] MEDS: BALSAM PERU/CASTOR OIL 60 GM OINT...G. TP SCH (09:05)
[2020-06-06] MEDS: HEPARIN SODIUM,PORCINE 5,000 UNITS/ML VIAL SUBCUT SCH ×2 (09:11→20:17)
[2020-06-06] MEDS: SPIRONOLACTONE 50 MG TABLET (ALDACTONE) PO SCH (09:12)
[2020-06-06] MEDS: FUROSEMIDE 40 MG TABLET PO SCH (09:13)
[2020-06-06] MEDS: ONDANSETRON HCL 4 MG/2 ML VIAL IVP PRN (11:29)
[2020-06-06 12:30] VITALS: BP_SYST 98
[2020-06-06 16:00] VITALS: BP_SYST 119
[2020-06-06 20:00] VITALS: BP_SYST 112
[2020-06-06] MEDS: FLUCONAZOLE 200 mg/ NS 100 ML IV SCH (20:11)
[2020-06-06] MEDS: SENNOSIDES 8.6 MG TABLET PO SCH (20:13)
[2020-06-06] MEDS: INSULIN GLARGINE 100 UNITS/ML 10 ML VIAL SUBCUT SCH (20:33)
[2020-06-07 01:10] VITALS: BP_SYST 99
[2020-06-07] MEDS: oxyCODONE HCL 5 MG TABLET PO PRN ×4 (01:27→18:14)
[2020-06-07] MEDS ORDERED: oxyCODONE HCL 5 MG TABLET PO ONE (04:30)
[2020-06-07 04:44] VITALS: BP_SYST 105
[2020-06-07] MEDS ORDERED: METOCLOPRAMIDE HCL 10 MG/2 ML VIAL ONE ×2 (05:47→14:11)
[2020-06-07] MEDS: METOCLOPRAMIDE HCL 10 MG/2 ML VIAL IVP SCH ×3 (05:52→22:00)
[2020-06-07] MEDS: MEROPENEM 1 GM in NS 100 ML IV SCH ×3 (05:53→22:00)
[2020-06-07] MEDS: NORMAL SALINE 5 ML DISP.SYRIN IVF SCH ×3 (06:24→22:00)
[2020-06-07 08:05] VITALS: BP_SYST 107
[2020-06-07] MEDS: SPIRONOLACTONE 50 MG TABLET (ALDACTONE) PO SCH (08:09)
[2020-06-07] MEDS: DOCUSATE SODIUM 250 MG CAPSULE PO SCH ×2 (08:09→22:01)
[2020-06-07] MEDS: FUROSEMIDE 40 MG TABLET PO SCH (08:10)
[2020-06-07] MEDS: PANTOPRAZOLE SODIUM 40 MG TAB PO SCH (08:10)
[2020-06-07] MEDS: HEPARIN SODIUM,PORCINE 5,000 UNITS/ML VIAL SUBCUT SCH ×2 (08:13→22:20)
[2020-06-07] MEDS: BALSAM PERU/CASTOR OIL 60 GM OINT...G. TP SCH (08:13)
[2020-06-07 08:37] LABS: BASOPHILS # (AUTO) 0.1 K/uL (0.0-0.2); BASOPHILS % (AUTO) 0.7 % (0.0-2.0); EOSINOPHILS # (AUTO) 0.1 K/uL (0.0-0.4); EOSINOPHILS % (AUTO) 0.8 % (0.0-4.0); HEMOGLOBIN 11.1 g/dL (12.0-16.0); LYMPHOCYTES # (AUTO) 1.6 K/uL (1.0-5.5); LYMPHOCYTES % (AUTO) 9.2 % (20.5-51.5); MEAN CORPUSCULAR HEMOGLOBIN 29 pg (27-31); MEAN CORPUSCULAR HGB CONC 33 % (32-36); MEAN CORPUSCULAR VOLUME 89 fL (79.0-98.0); MONOCYTES # (AUTO) 0.8 K/uL (0.0-1.0); MONOCYTES % (AUTO) 4.5 % (1.7-9.3); NEUTROPHILS # (AUTO) 14.7 K/uL (1.8-7.7); NEUTROPHILS % (AUTO) 84.8 % (40.0-70.0); PLATELET COUNT (AUTO) 78 K/uL (130-430); RED BLOOD CELL COUNT(AUTO) 3.81 MIL/uL (4.2-6.2); RED CELL DISTRIBUTION WIDTH 26.5 % (9.0-15.0); WHITE BLOOD COUNT (AUTO) 17.3 K/uL (4.8-10.8)
[2020-06-07 08:57] LABS: ALBUMIN 1.5 g/dL (3.4-4.8); CALCIUM 7.2 mg/dL (8.4-11.0); CREATININE 1.13 mg/dL (0.55-1.30); POTASSIUM 4.8 mmol/L (3.5-5.1); TOTAL BILIRUBIN 2.9 mg/dL (0.0-1.0)
[2020-06-07 12:00] VITALS: BP_SYST 87
[2020-06-07] MEDS: NACL 0.9% 1,000 ML IV SCH (15:27)
[2020-06-07 16:00] VITALS: BP_SYST 101
[2020-06-07] MEDS: INSULIN LISPRO SLIDING SCALE 100 UNITS/ML VIAL (humaLOG) SUBCUT PRN ×2 (17:08→22:28)
[2020-06-07] MEDS: FLUCONAZOLE 200 mg/ NS 100 ML IV SCH (20:00)
[2020-06-07 20:43] VITALS: BP_SYST 112
[2020-06-07] MEDS: fentaNYL 12 MCG/HR PATCH TD SCH (21:00)
[2020-06-07] MEDS: SENNOSIDES 8.6 MG TABLET PO SCH (21:00)
[2020-06-07] MEDS: INSULIN GLARGINE 100 UNITS/ML 10 ML VIAL SUBCUT SCH (22:26)
[2020-06-08] VITALS: BP_SYST 110
[2020-06-08] MEDS: oxyCODONE HCL 5 MG TABLET PO PRN ×3 (02:25→22:32)
[2020-06-08] MEDS: MEROPENEM 1 GM in NS 100 ML IV SCH ×3 (06:00→22:34)
[2020-06-08] MEDS: NORMAL SALINE 5 ML DISP.SYRIN IVF SCH ×3 (06:00→22:34)
[2020-06-08] MEDS: METOCLOPRAMIDE HCL 10 MG/2 ML VIAL IVP SCH ×2 (06:00→21:26)
[2020-06-08] MEDS: INSULIN LISPRO SLIDING SCALE 100 UNITS/ML VIAL (humaLOG) SUBCUT PRN ×4 (06:42→21:27)
[2020-06-08 08:00] VITALS: BP_SYST 97
[2020-06-08 08:23] VITALS: BP_SYST 110
[2020-06-08] MEDS: FUROSEMIDE 40 MG TABLET PO SCH (09:19)
[2020-06-08] MEDS: PANTOPRAZOLE SODIUM 40 MG TAB PO SCH (09:20)
[2020-06-08] MEDS: DOCUSATE SODIUM 250 MG CAPSULE PO SCH ×2 (09:20→20:56)
[2020-06-08] MEDS: SPIRONOLACTONE 50 MG TABLET (ALDACTONE) PO SCH (09:20)
[2020-06-08] MEDS: BALSAM PERU/CASTOR OIL 60 GM OINT...G. TP SCH (09:21)
[2020-06-08] MEDS: HEPARIN SODIUM,PORCINE 5,000 UNITS/ML VIAL SUBCUT SCH ×2 (09:21→21:12)
[2020-06-08 11:26] VITALS: BP_SYST 91
[2020-06-08] MEDS: NACL 0.9% 1,000 ML IV SCH (15:27)
[2020-06-08] MEDS: ALBUMIN HUMAN 25% 50 ML IV SCH ×2 (15:35→21:13)
[2020-06-08] MEDS ORDERED: NACL 0.9% 250 ML IV ONE (15:45)
[2020-06-08 15:59] VITALS: BP_SYST 94
[2020-06-08] MEDS ORDERED: METOCLOPRAMIDE HCL 10 MG/2 ML VIAL IVP ONE (16:15)
[2020-06-08 20:00] VITALS: BP_SYST 104
[2020-06-08] MEDS: FLUCONAZOLE 200 mg/ NS 100 ML IV SCH (20:56)
[2020-06-08] MEDS: INSULIN GLARGINE 100 UNITS/ML 10 ML VIAL SUBCUT SCH (21:12)
[2020-06-09] VITALS: BP_SYST 101
[2020-06-09] MEDS: ALBUMIN HUMAN 25% 50 ML IV SCH (04:04)
[2020-06-09 04:21] VITALS: BP_SYST 107
[2020-06-09] MEDS: MEROPENEM 1 GM in NS 100 ML IV SCH ×3 (05:55→22:31)
[2020-06-09] MEDS: METOCLOPRAMIDE HCL 10 MG/2 ML VIAL IVP SCH ×3 (05:56→21:35)
[2020-06-09] MEDS: NORMAL SALINE 5 ML DISP.SYRIN IVF SCH ×3 (05:56→21:35)
[2020-06-09] MEDS: INSULIN LISPRO SLIDING SCALE 100 UNITS/ML VIAL (humaLOG) SUBCUT PRN ×4 (06:07→21:34)
[2020-06-09 07:18] LABS: BASOPHILS % (AUTO) 0.2 % (0.0-2.0); EOSINOPHILS # (AUTO) 0.2 K/uL (0.0-0.4); EOSINOPHILS % (AUTO) 1.4 % (0.0-4.0); HEMOGLOBIN 8.8 g/dL (12.0-16.0); LYMPHOCYTES # (AUTO) 1.1 K/uL (1.0-5.5); LYMPHOCYTES % (AUTO) 7.4 % (20.5-51.5); MEAN CORPUSCULAR HEMOGLOBIN 29 pg (27-31); MEAN CORPUSCULAR HGB CONC 33 % (32-36); MEAN CORPUSCULAR VOLUME 90 fL (79.0-98.0); MONOCYTES # (AUTO) 0.8 K/uL (0.0-1.0); MONOCYTES % (AUTO) 5.9 % (1.7-9.3); NEUTROPHILS # (AUTO) 12.2 K/uL (1.8-7.7); NEUTROPHILS % (AUTO) 85.1 % (40.0-70.0); PLATELET COUNT (AUTO) 55 K/uL (130-430); RED BLOOD CELL COUNT(AUTO) 3.01 MIL/uL (4.2-6.2); RED CELL DISTRIBUTION WIDTH 26.4 % (9.0-15.0); WHITE BLOOD COUNT (AUTO) 14.4 K/uL (4.8-10.8)
[2020-06-09 07:24] LABS: ALBUMIN 2.1 g/dL (3.4-4.8); CALCIUM 7.4 mg/dL (8.4-11.0); CREATININE 1.05 mg/dL (0.55-1.30); POTASSIUM 4.8 mmol/L (3.5-5.1); TOTAL BILIRUBIN 2.1 mg/dL (0.0-1.0)
[2020-06-09] MEDS: HEPARIN SODIUM,PORCINE 5,000 UNITS/ML VIAL SUBCUT SCH ×2 (07:52→21:00)
[2020-06-09] MEDS: DOCUSATE SODIUM 250 MG CAPSULE PO SCH ×3 (07:59→21:00)
[2020-06-09 08:00] VITALS: BP_SYST 95
[2020-06-09] MEDS: PANTOPRAZOLE SODIUM 40 MG TAB PO SCH (08:00)
[2020-06-09] MEDS: BALSAM PERU/CASTOR OIL 60 GM OINT...G. TP SCH (08:00)
[2020-06-09] MEDS: oxyCODONE HCL 5 MG TABLET PO PRN ×2 (08:07→16:40)
[2020-06-09 12:18] VITALS: BP_SYST 103
[2020-06-09 16:19] VITALS: BP_SYST 113
[2020-06-09] MEDS: NACL 0.9% 1,000 ML IV SCH (16:40)
[2020-06-09 20:00] VITALS: BP_SYST 106
[2020-06-09] MEDS: FLUCONAZOLE 200 mg/ NS 100 ML IV SCH (21:32)
[2020-06-09] MEDS: INSULIN GLARGINE 100 UNITS/ML 10 ML VIAL SUBCUT SCH (21:33)
[2020-06-10] VITALS: BP_SYST 108
[2020-06-10] MEDS: NORMAL SALINE 5 ML DISP.SYRIN IVF SCH ×3 (06:03→21:33)
[2020-06-10] MEDS: MEROPENEM 1 GM in NS 100 ML IV SCH ×3 (06:03→21:30)
[2020-06-10] MEDS: METOCLOPRAMIDE HCL 10 MG/2 ML VIAL IVP SCH (06:04)
[2020-06-10] MEDS: INSULIN LISPRO SLIDING SCALE 100 UNITS/ML VIAL (humaLOG) SUBCUT PRN ×4 (06:06→21:32)
[2020-06-10] MEDS: oxyCODONE HCL 5 MG TABLET PO PRN ×3 (06:35→23:25)
[2020-06-10 07:38] LABS: BASOPHILS % (AUTO) 0.3 % (0.0-2.0); EOSINOPHILS # (AUTO) 0.2 K/uL (0.0-0.4); EOSINOPHILS % (AUTO) 1.7 % (0.0-4.0); HEMATOCRIT 22.9 % (36-48); HEMOGLOBIN 7.4 g/dL (12.0-16.0); LYMPHOCYTES # (AUTO) 0.9 K/uL (1.0-5.5); LYMPHOCYTES % (AUTO) 8.7 % (20.5-51.5); MEAN CORPUSCULAR HEMOGLOBIN 29 pg (27-31); MEAN CORPUSCULAR HGB CONC 32 % (32-36); MEAN CORPUSCULAR VOLUME 90 fL (79.0-98.0); MONOCYTES # (AUTO) 0.6 K/uL (0.0-1.0); MONOCYTES % (AUTO) 5.7 % (1.7-9.3); NEUTROPHILS # (AUTO) 8.2 K/uL (1.8-7.7); NEUTROPHILS % (AUTO) 83.6 % (40.0-70.0); RED BLOOD CELL COUNT(AUTO) 2.54 MIL/uL (4.2-6.2); RED CELL DISTRIBUTION WIDTH 26.4 % (9.0-15.0); WHITE BLOOD COUNT (AUTO) 9.8 K/uL (4.8-10.8)
[2020-06-10 07:45] LABS: CREATININE 0.63 mg/dL (0.55-1.30); POTASSIUM 3.7 mmol/L (3.5-5.1)
[2020-06-10] MEDS: DOCUSATE SODIUM 250 MG CAPSULE PO SCH (08:02)
[2020-06-10] MEDS: HEPARIN SODIUM,PORCINE 5,000 UNITS/ML VIAL SUBCUT SCH (08:03)
[2020-06-10] MEDS: PANTOPRAZOLE SODIUM 40 MG TAB PO SCH (08:14)
[2020-06-10] MEDS: BALSAM PERU/CASTOR OIL 60 GM OINT...G. TP SCH (08:15)
[2020-06-10 08:52] LABS: PLATELET COUNT (AUTO) 36 K/uL (130-430)
[2020-06-10] MEDS: FUROSEMIDE 40 MG TABLET PO SCH (09:00)
[2020-06-10] MEDS: SPIRONOLACTONE 50 MG TABLET (ALDACTONE) PO SCH (09:00)
[2020-06-10] MEDS ORDERED: CALCIUM GLUCONATE 2 GM in NS 100 ML IV ONE (09:30)
[2020-06-10 11:32] VITALS: BP_SYST 108
[2020-06-10 15:31] VITALS: BP_SYST 101
[2020-06-10 20:00] VITALS: BP_SYST 102
[2020-06-10] MEDS: fentaNYL 12 MCG/HR PATCH TD SCH (21:00)
[2020-06-10] MEDS: INSULIN GLARGINE 100 UNITS/ML 10 ML VIAL SUBCUT SCH (21:32)
[2020-06-11] VITALS: BP_SYST 113
[2020-06-11] MEDS: MEROPENEM 1 GM in NS 100 ML IV SCH (05:57)
[2020-06-11] MEDS: NORMAL SALINE 5 ML DISP.SYRIN IVF SCH ×2 (05:58→13:11)
[2020-06-11] MEDS: INSULIN LISPRO SLIDING SCALE 100 UNITS/ML VIAL (humaLOG) SUBCUT PRN ×3 (05:59→17:43)
[2020-06-11 06:00] LABS: BASOPHILS % (AUTO) 0.1 % (0.0-2.0); EOSINOPHILS # (AUTO) 0.4 K/uL (0.0-0.4); EOSINOPHILS % (AUTO) 2.7 % (0.0-4.0); HEMATOCRIT 31.3 % (36-48); LYMPHOCYTES # (AUTO) 1.3 K/uL (1.0-5.5); MEAN CORPUSCULAR HEMOGLOBIN 29 pg (27-31); MEAN CORPUSCULAR HGB CONC 32 % (32-36); MEAN CORPUSCULAR VOLUME 90 fL (79.0-98.0); MONOCYTES # (AUTO) 1.1 K/uL (0.0-1.0); MONOCYTES % (AUTO) 7.4 % (1.7-9.3); NEUTROPHILS # (AUTO) 11.7 K/uL (1.8-7.7); NEUTROPHILS % (AUTO) 80.8 % (40.0-70.0); PLATELET COUNT (AUTO) 68 K/uL (130-430); RED BLOOD CELL COUNT(AUTO) 3.46 MIL/uL (4.2-6.2); RED CELL DISTRIBUTION WIDTH 25.9 % (9.0-15.0); WHITE BLOOD COUNT (AUTO) 14.4 K/uL (4.8-10.8)
[2020-06-11 06:41] LABS: ALBUMIN 1.9 g/dL (3.4-4.8); CALCIUM 7.8 mg/dL (8.4-11.0); CREATININE 1.08 mg/dL (0.55-1.30); TOTAL BILIRUBIN 1.7 mg/dL (0.0-1.0)
[2020-06-11 08:00] VITALS: BP_SYST 96
[2020-06-11 08:23] LABS: POTASSIUM 5.8 mmol/L (3.5-5.1)
[2020-06-11] MEDS ORDERED: SODIUM POLYSTYRENE SULFONATE 15 GM/60 ML UDBTL PO ONE ×3 (08:45→17:45)
[2020-06-11] MEDS: FUROSEMIDE 40 MG TABLET PO SCH (08:56)
[2020-06-11] MEDS: SPIRONOLACTONE 50 MG TABLET (ALDACTONE) PO SCH (08:57)
[2020-06-11] MEDS: PANTOPRAZOLE SODIUM 40 MG TAB PO SCH (08:57)
[2020-06-11] MEDS: BALSAM PERU/CASTOR OIL 60 GM OINT...G. TP SCH (08:58)
[2020-06-11] MEDS ORDERED: FAMOTIDINE 20 MG TABLET PO SCH (09:00)
[2020-06-11] MEDS ORDERED: ERTAPENEM SODIUM 1 GM in NS 50 ML IV SCH (09:00)
[2020-06-11 09:57] LABS: BASOPHILS % (AUTO) 0.1 % (0.0-2.0); EOSINOPHILS # (AUTO) 0.3 K/uL (0.0-0.4); EOSINOPHILS % (AUTO) 2.1 % (0.0-4.0); HEMATOCRIT 31.4 % (36-48); HEMOGLOBIN 9.9 g/dL (12.0-16.0); LYMPHOCYTES # (AUTO) 1.2 K/uL (1.0-5.5); LYMPHOCYTES % (AUTO) 7.8 % (20.5-51.5); MEAN CORPUSCULAR HEMOGLOBIN 29 pg (27-31); MEAN CORPUSCULAR HGB CONC 32 % (32-36); MEAN CORPUSCULAR VOLUME 91 fL (79.0-98.0); MONOCYTES # (AUTO) 1.1 K/uL (0.0-1.0); MONOCYTES % (AUTO) 7.6 % (1.7-9.3); NEUTROPHILS # (AUTO) 12.2 K/uL (1.8-7.7); NEUTROPHILS % (AUTO) 82.4 % (40.0-70.0); PLATELET COUNT (AUTO) 66 K/uL (130-430); RED BLOOD CELL COUNT(AUTO) 3.45 MIL/uL (4.2-6.2); RED CELL DISTRIBUTION WIDTH 26.1 % (9.0-15.0); WHITE BLOOD COUNT (AUTO) 14.9 K/uL (4.8-10.8)
[2020-06-11] MEDS ORDERED: FLUCONAZOLE 100 mg/ NS 50 ML IV SCH (10:00)
[2020-06-11 10:17] LABS: CALCIUM 7.9 mg/dL (8.4-11.0); CREATININE 1.12 mg/dL (0.55-1.30); POTASSIUM 5.7 mmol/L (3.5-5.1)
[2020-06-11 10:23] LABS: ALBUMIN 1.8 g/dL (3.4-4.8); TOTAL BILIRUBIN 1.8 mg/dL (0.0-1.0)
[2020-06-11] MEDS: oxyCODONE HCL 5 MG TABLET PO PRN (10:43)
[2020-06-11 11:38] VITALS: BP_SYST 114
[2020-06-11 15:44] VITALS: BP_SYST 101
[2020-06-11 17:00] LABS: CALCIUM 7.9 mg/dL (8.4-11.0); CREATININE 1.07 mg/dL (0.55-1.30); POTASSIUM 5.6 mmol/L (3.5-5.1)
[2020-06-11] MEDS ORDERED: SODIUM POLYSTYRENE SULFONATE 15 GM/60 ML UDBTL ONE (18:15)
[2020-06-11 20:17] VITALS: BP_SYST 99
[2020-06-11] MEDS ORDERED: INSULIN GLARGINE 100 UNITS/ML 10 ML VIAL SUBCUT SCH (21:00)
== END 2020-06-11 21:05 | disposition home health service (06) | DRG 853 ==
LOC: SED 09:42 → STU 15:51 → SMU 05-20 12:43 → STU 05-20 12:45 → SMU 05-20 17:04 → SIC 05-28 17:55 → STU 05-29 12:23
PROVIDERS: ADMIT Internal Medicine; ATTEND Internal Medicine
PROC: 0W993ZZ Drainage of Right Pleural Cavity, Percutaneous Approach (ICD-10-PCS; 2020-05-17)
PROC: 30233K1 Transfusion of Nonautologous Frozen Plasma into Peripheral Vein, Percutaneous Approach (ICD-10-PCS; 2020-05-26)
PROC: 30233R1 Transfusion of Nonautologous Platelets into Peripheral Vein, Percutaneous Approach (ICD-10-PCS; 2020-05-27)
PROC: 0BBN4ZZ Excision of Right Pleura, Percutaneous Endoscopic Approach (ICD-10-PCS; 2020-05-28)
PROC: 0W9940Z Drainage of Right Pleural Cavity with Drainage Device, Percutaneous Endoscopic Approach (ICD-10-PCS; 2020-05-28)
PROC: 0BJ08ZZ Inspection of Tracheobronchial Tree, Via Natural or Artificial Opening Endoscopic (ICD-10-PCS; 2020-05-28)
PROC: 02H633Z Insertion of Infusion Device into Right Atrium, Percutaneous Approach (ICD-10-PCS; 2020-05-28)
PROC: B548ZZA Ultrasonography of Superior Vena Cava, Guidance (ICD-10-PCS; 2020-05-28)
PROC: 0BNK4ZZ Release Right Lung, Percutaneous Endoscopic Approach (ICD-10-PCS; principal; 2020-05-28 11:00)
PROC: 0BNK3ZZ Release Right Lung, Percutaneous Approach (ICD-10-PCS; 2020-06-07)
PROC: 0WP9X0Z Removal of Drainage Device from Right Pleural Cavity, External Approach (ICD-10-PCS; 2020-06-07)
PROC: 0WH933Z Insertion of Infusion Device into Right Pleural Cavity, Percutaneous Approach (ICD-10-PCS; 2020-06-07)
DX: A41.01 Sepsis due to Methicillin susceptible Staphylococcus aureus (principal); J18.9 Pneumonia, unspecified organism; J96.01 Acute respiratory failure with hypoxia; N17.0 Acute kidney failure with tubular necrosis; E43 Unspecified severe protein-calorie malnutrition; J86.9 Pyothorax without fistula; J91.8 Pleural effusion in other conditions classified elsewhere; L03.115 Cellulitis of right lower limb; K76.6 Portal hypertension; L03.116 Cellulitis of left lower limb; L97.919 Non-pressure chronic ulcer of unspecified part of right lower leg with unspecified severity; L97.929 Non-pressure chronic ulcer of unspecified part of left lower leg with unspecified severity; R18.8 Other ascites; N39.0 Urinary tract infection, site not specified; M48.56XA Collapsed vertebra, not elsewhere classified, lumbar region, initial encounter for fracture; E87.1 Hypo-osmolality and hyponatremia; Z66 Do not resuscitate; B95.8 Unspecified staphylococcus as the cause of diseases classified elsewhere; D69.59 Other secondary thrombocytopenia; E11.9 Type 2 diabetes mellitus without complications; F06.4 Anxiety disorder due to known physiological condition; M75.91 Shoulder lesion, unspecified, right shoulder; K75.4 Autoimmune hepatitis; E66.9 Obesity, unspecified; F32.9 Major depressive disorder, single episode, unspecified; G89.4 Chronic pain syndrome; F43.20 Adjustment disorder, unspecified; I10 Essential (primary) hypertension; K74.60 Unspecified cirrhosis of liver; Z79.4 Long term (current) use of insulin; Z79.899 Other long term (current) drug therapy; Z89.411 Acquired absence of right great toe; Z90.710 Acquired absence of both cervix and uterus; Z88.0 Allergy status to penicillin; Z88.8 Allergy status to other drugs, medicaments and biological substances; Z88.5 Allergy status to narcotic agent; Z20.822 Contact with and (suspected) exposure to COVID-19; Z68.28 Body mass index [BMI] 28.0-28.9, adult
CPT/HCPCS: 32555; 36415; 36600; 71045; 71100; 71250-TC; 71260-TC; 72072-TC; 72100-TC; 72131; 73030; 73221; 76376; 76604; 76700-TC; 80048; 80053; 80074; 80076; 80202-TC; 81000-TC; 82042; 82140-TC; 82150-TC; 82607; 82746; 82803-TC; 82947-TC; 82962; 83010; 83605; 83615-TC; 83690-TC; 83880; 84157-TC; 84443-TC; 85007; 85025; 85027; 85044-TC; 85379; 85384-TC; 85610-TC; 85651-TC; 85730-TC; 86022; 86140; 86886; 86900; 86901; 86920; 87040-TC; 87070; 87070-TC; 87081; 87086; 87101; 87116; 87186-TC; 88108; 88305; 89051-TC; 89060-TC; 93005; 93306; 93970; 94760; 96361; 96365; 96367; 97110-GP; 97112-GP; 97116-GP; 97530-GP; 99291; C1727; C1729; C1750; C1751; C9399; G0378; J0456; J0610; J1030; J1100; J1335; J1450; J1644; J1815; J1885; J1940; J1956; J2001; J2185; J2250; J2270; J2405; J2704; J2765; J3010; J3243; J3370; J3430; J3490; J7030; J7060; J7120; J8540; P9034; P9046; P9059; Q9967; U0003